=== PATIENT | male | born 1955 | race Caucasian/White ===

== ENCOUNTER 2016-08-08 15:39 | Emergency (ER) | payer MEDICARE, MEDICAID ==
[2016-08-08] MEDS ORDERED: Ketorolac INJ* 30 MG/ML 1 ML VIAL IV ONE (17:26)
[2016-08-08 17:31] LABS: Urine Bacteria Absent (Absent); Urine Bilirubin Negative (Negative); Urine Glucose Negative (Negative); Urine Nitrite Negative (Negative); Urine Sperm Present (Absent)
--- NOTE | 2016-08-08 17:48 | RAD ---
CLINICAL HISTORY: Left flank pain, hematuria COMPARISON: September 30, 2012 TECHNIQUE: Multiple contiguous axial CT scans were obtained of the abdomen and pelvis, without intravenous contrast enhancement. Coronal and sagittal multiplanar reformations are submitted for review. Oral contrast was not administered. FINDINGS: The study is limited by the lack of intravenous contrast. This limits evaluation of the solid organs and vasculature. LUNG BASES: The lung bases are clear. LIVER: The liver is normal in shape, size, contour, and attenuation. BILE DUCTS: There is no intrahepatic or extrahepatic biliary dilatation. GALLBLADDER: The gallbladder is not visualized. Surgical clips are noted in the gallbladder fossa. PANCREAS: The pancreas is normal, without mass or ductal dilatation. SPLEEN: Normal in size and appearance. UPPER GI TRACT: Evaluation of the gastrointestinal tract is limited by incomplete gastric distention. The upper GI tract is unremarkable. SMALL BOWEL AND MESENTERY: The small bowel is normal in contour, course, and caliber. There is no obstruction or dilatation. COLON: There are occasional diverticula of the sigmoid colon. There is no pericolonic inflammatory change. ADRENALS: Normal bilaterally. KIDNEYS: There is a 0.9 x 0.7 x 0.4 cm calculus of the left UPJ. There is mild to moderate pelvocaliectasis. There is mild stranding along the proximal left ureter. BLADDER: The bladder is smooth in contour. PELVIC ORGANS: The prostate gland is normal. The seminal vesicles are symmetric. AORTA: There is calcific atherosclerotic disease of the abdominal aorta and its branches, without aneurysmal dilatation IVC: Unremarkable LYMPH NODES: There is no lymphadenopathy by size criteria. ABDOMINAL WALL: There is no evidence for abdominal wall hernia. BONES AND SOFT TISSUES: Degenerative changes are noted along the spine OTHER: None IMPRESSION: 0.9 CM CALCULUS OF THE LEFT UPJ WITH MILD TO MODERATE HYDRONEPHROSIS
[2016-08-08 18:09] LABS: Hematocrit 38 % (42-52); Hemoglobin 12.8 g/dl (14.0-18.0); Mean Corpuscular HGB Conc 34 g/dl (31-36); Mean Corpuscular Hemoglobin 30 pg (27-31); Mean Corpuscular Volume 90 fL (80-94); Mean Platelet Volume 9 um3 (7.4-10.4); Red Blood Count 4.24 10^6/ul (4.0-5.4); Red Cell Distribution Width 14 % (10.5-15); White Blood Count 7.2 10^3/ul (3.5-10.8)
[2016-08-08 18:27] LABS: Albumin 4.1 g/dL (3.2-5.2); BUN/Creatinine Ratio 21.1 (8-20); Calcium 9.6 mg/dL (8.6-10.3); EGFR African American 109.6 (>60); EGFR Non-African American 85.2 (>60); Globulin 2.9 g/dL (2-4); Potassium 4.3 mmol/L (3.5-5.0); Total Bilirubin 0.7 mg/dL (0.2-1.0)
[2016-08-08 20:01] VITALS: BP 163/91
--- NOTE | 2016-08-08 22:41 | ED ---
Servando Phillips Rebecca, scribed for Riki Lang MD on 08/08/16 at 1727 . Abdominal Pain/Male - HPI Summary HPI Summary: Pt is a 61 y/o M who presents to ED c/o abd pain. Pain began suddenly 1 week ago and has been constant and worsening since onset. Pain is discrete to the LLQ without radiation. Characterized as sharp and moderate, ranked 5/10. Sx alleviated by nothing, aggravated by sitting down and laying on his side. Additionally c/o hematuria for 1 week which has been improving since onset. Denies V/D, fever, back pain, blood in stool and dysuria. PSHx hernia removal ( 5 years ago, in the LLQ). No PMHx of FHx kidney stones. PSHx cholecystectomy and appy. - History of Current Complaint Chief Complaint: EDAbdPain Stated Complaint: LT SIDE ABD PAIN Time Seen by Provider: 08/08/16 17:16 Hx Obtained From: Patient Onset/Duration: Sudden Onset, Lasting Weeks - 1 week, Still Present Timing: Constant Severity Initially: Moderate Severity Currently: Moderate Pain Intensity: 5 Pain Scale Used: 0-10 Numeric Location: Discrete At: LLQ Radiates: No Character: Sharp Aggravating Factor(s): Other: - Sitting or laying on his side Alleviating Factor(s): Nothing Associated Signs And Symptoms: Positive: Urinary Symptoms - Hematuria; denies dysuria. Negative: Fever, Back Pain, Blood in Stool, Vomiting, Diarrhea - Allergies/Home Medications Allergies/Adverse Reactions: Allergies Allergy/AdvReac Type Severity Reaction Status Date / Time No Known Allergies Allergy Verified 08/08/16 15:42 PMH/Surg Hx/FS Hx/Imm Hx Endocrine/Hematology History: Denies: Hx Diabetes Cardiovascular History: Reports: Hx Hypercholesterolemia - No meds, Hx Hypertension Denies: Hx Pacemaker/ICD, Other Cardiovascular Problems/Disorders GI History: Reports: Other GI Disorders - Hx umbilical hernia repair, cholecystitis History: Denies: Hx Kidney Stones Musculoskeletal History: Reports: Other Musculoskeletal History - 2 surgeries right knee, probable arthritis knees, occ back spasms Sensory History: Reports: Hx Contacts or Glasses Denies: Hx Hearing Aid Opthamlomology History: Reports: Hx Contacts or Glasses Psychiatric History: Denies: Hx Panic Disorder - Surgical History Surgery Procedure, Year, and Place: Hernia repair 04/2012,LT ear drum ruptured surgery 1982, bone infection R kneecap surgical treatment, appendectomy 1992, 2006 additional R knee surgery,gallbladder Hx Anesthesia Reactions: No Infectious Disease History: No Infectious Disease History: Denies: History Other Infectious Disease, Traveled Outside the [place] in Last 30 Days - Family History Known Family History: Positive: Cardiac Disease - mother with pacemaker, Other - lung cancer - Social History Alcohol Use: None Substance Use Type: Reports: None Smoking Status (MU): Former Smoker - Quit 21 years ago Review of Systems Negative: Fever Positive: Abdominal Pain - LLQ. Negative: Vomiting, Diarrhea Positive: hematuria, other - Denies blood in stool. Negative: dysuria Positive: Arthralgia - Denies back pain All Other Systems Reviewed And Are Negative: Yes Physical Exam - Summary Physical Exam Summary: General: Pleasant, alert, nontoxic, appears mildly uncomfortable. Holding LLQ but still jovial. HEENT: Moist mucosa Neck: soft, supple, no adenopathy, no edema Heart: S1, S2, RRR, no murmurs, rubs, or gallops Lungs: Clear to auscultation, breathing comfortable, no wheezes or rales Abdominal: Soft, flat,bowel sounds throughout. Tenderness in the LLQ. Fmeoral pulse intact. No rebound, no inguinal gulfe with Valsalva. Extremities: No edema, no calf tenderness, no CVA tenderness, no pitting edema. Neuro: Alert and oriented x 3 Psych: Logical, coherent Triage Information Reviewed: Yes Vital Signs On Initial Exam: Initial Vitals Temp Pulse Resp BP Pulse Ox 97.3 F 63 19 172/87 100 08/08/16 15:40 08/08/16 15:40 08/08/16 15:40 08/08/16 15:40 08/08/16 15:40 Vital Signs Reviewed: Yes Diagnostics - Vital Signs Vital Signs Temp Pulse Resp BP Pulse Ox 08/08/16 16:39 98.3 F 80 17 142/81 96 08/08/16 15:40 97.3 F 63 19 172/87 100 - Laboratory Lab Results: Lab Results 08/08/16 08/08/16 08/08/16 Range/Units 17:17 18:00 18:00 WBC 7.2 (3.5-10.8) 10^3/ul RBC 4.24 (4.0-5.4) 10^6/ul Hgb 12.8 L (14.0-18.0) g/dl Hct 38 L (42-52) % MCV 90 (80-94) fL MCH 30 (27-31) pg MCHC 34 (31-36) g/dl RDW 14 (10.5-15) % Plt Count 170 (150-450) 10^3/ul MPV 9 (7.4-10.4) um3 Neut % (Auto) 60.8 (38-83) % Lymph % (Auto) 28.7 (25-47) % [place] % (Auto) 7.3 (1-9) % Eos % (Auto) 2.2 (0-6) % Baso % (Auto) 1.0 (0-2) % Absolute Neuts (auto) 4.4 (1.5-7.7) 10^3/ul Absolute Lymphs (auto) 2.1 (1.0-4.8) 10^3/ul Absolute Monos (auto) 0.5 (0-0.8) 10^3/ul Absolute Eos (auto) 0.2 (0-0.6) 10^3/ul Absolute Basos (auto) 0.1 (0-0.2) 10^3/ul Absolute Nucleated RBC 0 10^3/ul Nucleated RBC % 0 Sodium 136 (133-145) mmol/L Potassium 4.3 (3.5-5.0) mmol/L Chloride 104 (101-111) mmol/L Carbon Dioxide 28 (22-32) mmol/L Anion Gap 4 (2-11) mmol/L BUN 19 (6-24) mg/dL Creatinine 0.90 (0.67-1.17) mg/dL Est GFR ( Amer) 109.6 (>60) Est GFR (Non-Af Amer) 85.2 (>60) BUN/Creatinine Ratio 21.1 H (8-20) Glucose 95 (70-100) mg/dL Calcium 9.6 (8.6-10.3) mg/dL Total Bilirubin 0.70 (0.2-1.0) mg/dL AST 20 (13-39) U/L ALT 22 (7-52) U/L Alkaline Phosphatase 65 (34-104) U/L Total Protein 7.0 (6.4-8.9) g/dL Albumin 4.1 (3.2-5.2) g/dL Globulin 2.9 (2-4) g/dL Albumin/Globulin Ratio 1.4 (1-3) Urine Color Yellow Urine Appearance Cloudy Urine pH 5.0 (5-9) Ur Specific [place] 1.020 (1.010-1.030) Urine Protein 1+(30 mg/dl) H (Negative) Urine Ketones Negative (Negative) Urine Blood 3+ H (Negative) Urine Nitrate Negative (Negative) Urine Bilirubin Negative (Negative) Urine Urobilinogen Negative (Negative) Ur Leukocyte Esterase Trace H (Negative) Urine WBC (Auto) 2+(11-20/hpf) H (Absent) Urine RBC (Auto) 3+(>10/hpf) H (Absent) Urine Bacteria Absent (Absent) Urine Sperm Present H (Absent) Urine Glucose Negative (Negative) Result Diagrams: 08/08/16 18:00 08/08/16 18:00 Lab Statement: Any lab studies that have been ordered have been reviewed, and results considered in the medical decision making process. - CT Abd/Pel CT CT Interpretation: Positive (See Comments) - 0.9 CM CALCULUS OF THE LEFT UPJ WITH MILD TO MODERATE HYDRONEPHROSIS CT Interpretation Completed By: Radiologist Re-Evaluation - Re-Evaluation First Eval Re-Evaluation Time: 18:30 Change: Improved Comment: Feeling better, appears comfortable. Abdominal Pain Fem Course/Dx - Course Assessment/Plan: Has sx of hematuria and some pain on the L side since the 1st. He has a 0.9 cm stone on the left. Its been 6 days and he has handled it, in fact, quite well except for pain. At the moment there are no signs of sepsis, severe dehydration or infection. Agrees to return for fever, signs of dehydration, intractable vomiting or intractable pain. Otherwise he will follow up with urologist in the next couple of days. - Diagnoses Differential Diagnosis/HQI/PQRI: Benign Prostatic Hyperplasia, Gall Bladder Disease, Prostatitis, Renal Colic, Ureteral Stone, Urinary Tract Infection Provider Diagnoses: Calculus of left kidney Discharge - Discharge Plan Condition: Fair Disposition: HOME Prescriptions: HYDROcodone/ACETAMIN 5-325 MG* [[place] 5-325 TAB*] 1 tab PO Q6H PRN #20 tab MDD 6 PRN Reason: Pain Ondansetron ODT TAB* [Zofran Odt TAB*] 4 mg PO Q8H PRN #20 tab.odt PRN Reason: Nausea Patient Education Materials: Kidney Stones (ED) Referrals: Arian Del Valle MD [Primary Care Provider] - Singh Azul MD [Medical Doctor] - 1 Day The documentation as recorded by the Servando conley Rebecca accurately reflects the service I personally performed and the decisions made by Precious bell Farzad, MD.
== END 2016-08-08 20:02 | disposition home or self-care (01) ==
LOC: ED 15:39
DX: N20.0 Calculus of kidney (principal); R10.32 Left lower quadrant pain
CPT/HCPCS: 36415; 74176; 80053; 81003; 81015; 85025; 87086; 96374; 99283; J1885

== ENCOUNTER → 2016-08-11 09:43 | Day surgery (SDC) | payer MEDICARE, MEDICAID ==
--- NOTE | 2016-08-10 19:54 | HP ---
HISTORY AND PHYSICAL: DATE OF PLANNED ADMISSION AND SURGERY: 08/11/16 HISTORY OF PRESENT ILLNESS: Mr. Patel is a 61-year-old white male who is admitted with a 1 cm proximal left ureteral calculus for cystoscopy and placement of left ureteral stent. Mr. Patel's history goes back to about 10 days ago when he started having recurrent episodes of left flank pain. Some of the episodes were associated with hematuria. He had nausea, but he did not have any fever or chills. Because of increasing severity of the pain, he presented to the emergency room on 08/08/16. He had a noncontrast CT of the abdomen and pelvis, which showed a 1 cm calculus in the proximal Left ureter associated with moderate left hydronephrosis. His lab work was normal. He was placed on pain medication and referred to our office for further evaluation and treatment. His past history is otherwise negative. No past history of any renal diseases or calculi and no history of any urological surgeries, no previous history of gross hematuria. He has a long history of nocturia about every 2 hours and day frequency every 2 hours. He, however, reports having adequate urinary stream and no feeling of incomplete bladder emptying. He denies any other episodes of gross hematuria or urinary tract infections. PAST MEDICAL HISTORY: Relevant for cholecystectomy, appendectomy, and hernia repair in the past. He denies any cardiac or pulmonary diseases or symptoms. MEDICATIONS: He is on no chronic medications. ALLERGIES: He denies any allergies to medications. FAMILY HISTORY: Negative for prostate carcinoma. SOCIAL HISTORY: He is a nonsmoker. He works at [employer] thru the [employer] program. He is not . He lived alone. He does not drive and takes the bus to work and for his appointments. PHYSICAL EXAMINATION GENERAL: Moderately overweight white male who looks older than his age. VITAL SIGNS: Blood pressure 140/80, pulse of 60. LUNGS: Clear. HEART: Regular and rhythmic. No murmurs. ABDOMEN: Soft. No masses, no tenderness. There is mild left CVA tenderness. EXTERNAL GENITALIA: Normal. RECTAL EXAM: Shows a slightly enlarged but non-suspicious prostate. LABORATORY DATA: Urinalysis showed +3 blood and negative otherwise. The patient has a KUB, which confirmed the presence of a 1 cm calculus radio- opaque in the proximal left ureter. IMPRESSION: A 1 cm radiopaque calculus in the proximal left ureter causing recurrent episodes of left renal colic and gross hematuria. PLAN: Cystoscopy and placement of left ureteral stent. The patient will be brought back afterwards for shockwave lithotripsy of the left renal calculus. Will decide regarding timing of stent removal. I discussed the above plans with the patient. All his questions were answered. [id number]/CPS #: [id number] RADHA
[~2016-08-11 09:43] MED LIST: Buffered Lidocaine 1% SYR 3ML* 3 ML/SYR SYRINGE INTRADERM ONE; Dexamethasone IV* 4 MG/ML 1 ML (4 MG) ONE; Famotidine IV* 10 MG/ML 2 ML (20 mg) IV ONE; Famotidine IV* 10 MG/ML 2 ML (20 mg) ONE; Furosemide IV* 10 MG/ML 2 ML VIAL (20 MG) ONE; HYDROmorphone INJ* 1 MG/ML CARPUJECT SYRINGE IV PRN; Iohexol 180 (CONTRAST) 10 ML SDV IV ONE; KETAMINE HCL* 50 MG/ML 10 ML VIAL ONE; Ketorolac INJ* 30 MG/ML 1 ML VIAL ONE; Lidocaine 2% PF * 5 ML VIAL ONE; Metoclopramide TAB* 10 MG ONE; Metoclopramide TAB* 10 MG PO ONE; Midazolam* 1 MG/ML 2 ML VIAL (2 MG) ONE; Midazolam* 1 MG/ML 5 ML VIAL (5 MG) ONE; Ondansetron INJ* 2 MG/ML VIAL IV PRN; Ondansetron INJ* 2 MG/ML VIAL ONE; Propofol* 10 MG/ML 20 ML BTL IV PUSH ONE; cefTRIAXone(*) 2 GM ADDV.VIAL IVPB ONE; fentaNYL* 50 MCG/ML 2 ML VIAL (100 MCG VIAL) IV PRN; fentaNYL* 50 MCG/ML 2 ML VIAL (100 MCG VIAL) ONE; oxyCODONE/Acetamin 5/325 MG* TAB PO PRN
--- NOTE | 2016-08-11 13:59 | RAD ---
INDICATION: Left ureteral stent placement COMPARISONS: August 08, 2016 TECHNIQUE: Fluoroscopy was provided for a retrograde pyelogram and stent placement. Total fluoroscopy time is: 7 seconds FINDINGS: Spot images demonstrate contrast within the renal collecting system. A ureteral stent is noted. IMPRESSION: FLUOROSCOPY WAS PROVIDED FOR A RETROGRADE PYELOGRAM AND STENT PLACEMENT CPT II Codes: 6045F
[2016-08-11 15:48] VITALS: BP 149/84
--- NOTE | 2016-08-12 00:41 | OP ---
DATE OF OPERATION: 08/11/16 [facility] DATE OF : 51 SURGEON: Balwinder Miller MD ANESTHESIOLOGIST: Dr. Rogelio Suárez. ANESTHESIA: General. PRE-OP DIAGNOSIS: Proximal left ureteral calculus (1cm). POST-OP DIAGNOSIS: Proximal left ureteral calculus (1cm). OPERATIVE PROCEDURE: 1. Cystoscopy. 2. Left retrograde pyelography and placement of left ureteral stent (6-[place]). INDICATION FOR PROCEDURE: Mr. Patel is a 61-year-old white male who presented to the emergency room two days ago with symptoms of left renal colic associated with on and off gross hematuria. Non-contrast CT of the abdomen and pelvis showed 1 cm calculus in the proximal left ureter associated with moderate hydronephrosis. KUB showed the stone to be a radiopaque. The patient is admitted for stent placement in preparation for definitive treatment of the stone. PATHOLOGY AT CYSTOSCOPY: The penile and bulbar urethra looked normal. The prostatic urethra measured 2.5 cm in length and there was moderate degree of obstruction by prostate enlargement. Examination of the bladder showed healthy bladder mucosa. There were no suspicious bladder lesions seen. No calculi or diverticulae were noted. The ureteral orifices looked normal. At fluoroscopy a 10 x 5 mm calculus was noted in the proximal left ureter about 2 cm distal to the ureteropelvic junction. There was minimal degree of left hydronephrosis. DESCRIPTION OF PROCEDURE: After successful general anesthesia, the patient was placed in the dorsal lithotomy position and was prepped and draped in the usual manner. Cystoscopy was performed. The bladder was carefully inspected and the above findings were noted. A flexible tip guidewire was then introduced into the left orifice and positioned in the area of the renal pelvis. A size 5-[place] open ended catheter was fed on top of the guidewire and positioned inside the renal pelvis. Retrograde pyelography was performed. A size 6-[place] stent was then placed with the proximal end coiling in the renal pelvis and the distal end coiling inside the bladder. There was good drainage of contrast from the kidney. The patient tolerated the procedure well and left the operating room in good condition. The plan is to bring the patient back next week for planned shockwave lithotripsy. If the stone is well fragmented then the stent will be removed. [id number]/CPS #: [id number] [facility]
== END | disposition home or self-care (01) ==
LOC: OR 09:43
PROVIDERS: ATTEND Urology
DX: N13.2 Hydronephrosis with renal and ureteral calculous obstruction (principal); R31.0 Gross hematuria
CPT/HCPCS: 74420; A9270-GY; C1876; J0696; J1100; J1885; J1940; J2250; J2405; J2704; J3010

== ENCOUNTER → 2016-08-14 08:30 | Day surgery (SDC) | payer MEDICARE, MEDICAID ==
[~2016-08-14 08:30] MED LIST changes: +Atropine 1MG/ML INJ* 1 ML VIAL ONE; -Dexamethasone IV* 4 MG/ML 1 ML (4 MG) ONE; +DiMENhydriNATE IV* 50 MG/ML VIAL IV PUSH PRN; +EPHEDrine (Pressors)* 50 MG/ML VIAL ONE; -Famotidine IV* 10 MG/ML 2 ML (20 mg) IV ONE; -Famotidine IV* 10 MG/ML 2 ML (20 mg) ONE; -Furosemide IV* 10 MG/ML 2 ML VIAL (20 MG) ONE; -HYDROmorphone INJ* 1 MG/ML CARPUJECT SYRINGE IV PRN; -Iohexol 180 (CONTRAST) 10 ML SDV IV ONE; -KETAMINE HCL* 50 MG/ML 10 ML VIAL ONE; -Ketorolac INJ* 30 MG/ML 1 ML VIAL ONE; -Metoclopramide TAB* 10 MG ONE; -Metoclopramide TAB* 10 MG PO ONE; -Midazolam* 1 MG/ML 2 ML VIAL (2 MG) ONE; -Midazolam* 1 MG/ML 5 ML VIAL (5 MG) ONE; -Ondansetron INJ* 2 MG/ML VIAL IV PRN; -Ondansetron INJ* 2 MG/ML VIAL ONE
--- NOTE | 2016-08-14 09:18 | RAD ---
HISTORY: Left flank pain COMPARISONS: August 10, 2016 VIEWS: Frontal views of the abdomen. FINDINGS: BOWEL: There is a nonspecific bowel gas pattern, with nondilated small bowel gas noted. CALCULI: Again noted is a calculus overlying the expected location of the left proximal ureter measuring approximately 0.7 cm in size. There has been interval placement of a left ureteral stent. BONES AND SOFT TISSUES: Degenerative changes are noted of the spine and hips. OTHER FINDINGS: The lung bases are clear. There is no subphrenic gas. IMPRESSION: LEFT-SIDED NEPHROLITHIASIS WITH INTERVAL PLACEMENT OF A LEFT URETERAL STENT
[2016-08-14 13:53] VITALS: BP 133/88
--- NOTE | 2016-08-15 02:30 | OP ---
DATE OF OPERATION: 08/14/16 [facility] DATE OF : 51 SURGEON: Balwinder Miller MD ANESTHESIOLOGIST: Orlando Dorsey MD ANESTHESIA: General. PRE-OP DIAGNOSES: 1. Proximal left ureteral calculus (1 cm). 2. Status post placement of left ureteral stent. POST-OP DIAGNOSES: 1. Proximal left ureteral calculus (1 cm). 2. Status post placement of left ureteral stent. OPERATIVE PROCEDURE: Shock wave lithotripsy of proximal left ureteral calculus (1 cm). INDICATIONS: Mr. Patel is a 61-year-old white male who presented last week with symptoms of left renal colic and was noted to have a 1-cm calculus in the proximal left ureter. Three days ago, he had urgent placement of left ureteral stent. He is now admitted for definitive treatment of the stone. PATHOLOGY: Preoperative KUB showed the left ureteral stent in good position. A 10 x 5 mm radiopaque calculus was noted in the proximal left ureter about 2 cm distal to the ureteropelvic junction. DESCRIPTION OF PROCEDURE: After successful general anesthesia, the patient was placed in the supine position on the shock wave lithotripsy table. The left ureteral calculus was visualized in both the PA and the oblique x-ray views and the position of the generator was adjusted to have the stone in the focus of the shock waves. A total of 2400 shocks were then delivered at a rate of 90 shocks per minute. The proper positioning of the generator and the fragmentation of the stone were monitored periodically. At the completion of the treatment, there seemed to be adequate fragmentation of the stone, but there was still a bit of a concern that the stone fragments might be too large for spontaneous passage and decision was made not to remove the stent at this setting. The plan is to see the patient in the office next week with a follow-up KUB and decision will be made regarding the stent removal or or the need for an endoscopic procedure. CC: Dr. Arian Del Valle* [id number]/[facility] #: [id number] MTDDaja
== END | disposition home or self-care (01) ==
LOC: OR 08:30
PROVIDERS: ATTEND Urology
DX: N20.1 Calculus of ureter (principal); Z87.891 Personal history of nicotine dependence
CPT/HCPCS: 74000; J0461; J0696; J2704; J3010

== ENCOUNTER 2016-09-22 13:35 | Emergency (ER) | payer MEDICARE, MEDICAID ==
[2016-09-22 13:48] VITALS: BP 146/87
[2016-09-22] MEDS ORDERED: Ibuprofen TAB* 600 MG PO ONE (14:20)
--- NOTE | 2016-09-22 14:33 | ED ---
Complex/Multi-Sys Presentation - HPI Summary HPI Summary: Pt here w/ accidental fall last night and is sore today. Was walking on side walk when he tripped over an uneven part and fell forward, catching himself w/ his hands, forearms, chest and knees. Reports he hit his chin as well. No LOC and denies [place], visual change, N/V, photophobia, neck pain. No break(s) in skin. Anterior chest muscles are sore but no significant pain nor is pain worse w/ deep breath - moving shoulders well w/o pain. No new back pain (has chronic LBP) . Has some hip soreness but has B/L hip arthritis (baseline). No SOB, numbness, tingling, weakness. His forearms and pinkies are sore to touch and with bending at the elbow and finger joints here - no swelling, bruising or deformities. His anterior knees are sore as well where they hit the sidewalk however he has no swelling and is able to walk and move LE's w/o pain or weakness. Has not tried anything to alleviate his pain. - History Of Current Complaint Chief Complaint: EDExtremityLower Time Seen by Provider: 09/22/16 14:10 Hx Obtained From: Patient - Allergies/Home Medications Allergies/Adverse Reactions: Allergies Allergy/AdvReac Type Severity Reaction Status Date / Time No Known Allergies Allergy Verified 09/22/16 13:45 PMH/Surg Hx/FS Hx/Imm Hx Previously Healthy: Yes Endocrine/Hematology History: Denies: Hx Anticoagulant Therapy, Hx Blood Disorders, Hx Diabetes, Hx Unexplained Bleeding Cardiovascular History: Reports: Hx Hypercholesterolemia - No meds, Hx Hypertension Denies: Hx Pacemaker/ICD, Other Cardiovascular Problems/Disorders Respiratory History: Denies: Other Respiratory Problems/Disorders GI History: Reports: Other GI Disorders - Hx umbilical hernia repair, cholecystitis History: Reports: Hx Kidney Stones - KIDNEY STONES 08/2016 Musculoskeletal History: Reports: Hx Arthritis - HIPS ULYSSES, Other Musculoskeletal History - 2 surgeries right knee, probable arthritis knees, occ back spasms Sensory History: Reports: Hx Contacts or Glasses Denies: Hx Hearing Aid Opthamlomology History: Reports: Hx Contacts or Glasses Psychiatric History: Denies: Hx Panic Disorder - Surgical History Surgery Procedure, Year, and Place: Hernia repair 04/2012,LT ear drum ruptured surgery 1982, bone infection R kneecap surgical treatment, appendectomy 1992, 2006 additional R knee surgery,gallbladder Hx Anesthesia Reactions: No Infectious Disease History: No Infectious Disease History: Denies: History Other Infectious Disease, Traveled Outside the [place] in Last 30 Days - Family History Known Family History: Positive: Cardiac Disease - mother with pacemaker, Other - lung cancer - Social History 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 Lives: With Family - Alcohol Use: None Hx Substance Use: No Substance Use Type: Reports: None Hx Tobacco Use: Yes - not currently Smoking Status (MU): Former Smoker Amount Used/How Often: PACK Q 2-3 DAYS Length of Time of Smoking/Using Tobacco: 1995 Have You Smoked in the Last Year: No Review of Systems Constitutional: Negative Eyes: Negative ENT: Negative Cardiovascular: Negative Respiratory: Negative Gastrointestinal: Negative Positive: no symptoms reported Musculoskeletal: Other - see HPI Skin: Other - see HPI Neurological: Negative Psychological: Normal - concerned All Other Systems Reviewed And Are Negative: Yes Physical Exam Triage Information Reviewed: Yes Vital Signs On Initial Exam: Initial Vitals Temp Pulse Resp BP Pulse Ox 98.0 F 70 18 146/87 97 09/22/16 13:45 09/22/16 13:45 09/22/16 13:45 09/22/16 13:45 09/22/16 13:45 Vital Signs Reviewed: Yes Appearance: Positive: Well-Appearing, No Pain Distress, Well-Nourished Skin: Positive: Warm, Dry - nickel sized superficial abrasion over Rt anterior knee; nickel sized ecchymosis over Lt knee; no other abnormal skin areas observed in fall areas Head/Face: Positive: Normal Head/Face Inspection Eyes: Positive: Normal, EOMI, MARIA LUZ - no photophobia, Conjunctiva Clear ENT: Positive: Normal ENT inspection, Hearing grossly normal, Pharynx normal. Negative: Nasal congestion, Nasal drainage Dental: Positive: Other - mostly edentulous - no signs of trauma Neck: Positive: Supple, Nontender Respiratory/Lung Sounds: Positive: Clear to Auscultation, Breath Sounds Present , Other - NTTP; equal chest rise - no flail chest, no ecchymosis, no abrasions observed. Negative: Rales, Rhonchi, Wheezes Cardiovascular: Positive: Normal, RRR, Pulses are Symmetrical in both Upper and Lower Extremities, S1, S2. Negative: Leg Edema Left, Leg Edema Right Abdomen Description: Positive: Nontender, No Organomegaly, Soft Bowel Sounds: Positive: Present Musculoskeletal: Positive: Normal, Strength/ROM Intact, Pain @ - mild TTP over volar surface of B/L forearms - pt reports pain in B/L forearms w/ elbow flexion and B/L pinky fingers w/ flexion/gripping - no ecchymosis, no erythema, no edema, no deformity -FROM UE joints Neurological: Positive: Normal, Sensory/Motor Intact, Alert, Oriented to Person Place, Time, CN Intact II-III Psychiatric: Positive: Anxious Diagnostics - Vital Signs Vital Signs Temp Pulse Resp BP Pulse Ox 09/22/16 13:45 98.0 F 70 18 146/87 97 - Laboratory Lab Statement: Any lab studies that have been ordered have been reviewed, and results considered in the medical decision making process. Complex Multi-Symp Course/Dx - Diagnoses Provider Diagnoses: Fall on moving sidewalk Discharge - Discharge Plan Condition: Stable Disposition: HOME Patient Education Materials: Fall Prevention (ED), Contusion in Adults (ED) Referrals: Arian Del Valle MD [Primary Care Provider] - Additional Instructions: You may ice and take ibuprofen with food for pain. Gentle stretches of affected areas to prevent stiffness. Follow-up with PCP if symptoms persist or worsen. *If you develop chest pain, shortness of breath, headache, change in vision, weakness or numbness, return to ED
--- NOTE | 2016-09-22 15:11 | RAD ---
INDICATION: Left forearm injury. TECHNIQUE: 2 views of the left forearm were obtained. FINDINGS: The bones are in normal alignment. No fracture is seen. IMPRESSION: NO EVIDENCE FOR FRACTURE.
--- NOTE | 2016-09-22 15:12 | RAD ---
INDICATION: Trauma left fifth finger. TECHNIQUE: 3 views of the left fifth finger were obtained. FINDINGS: The bones are normal alignment. No fracture is seen. Joint spaces appear maintained. IMPRESSION: NO EVIDENCE FOR FRACTURE.
--- NOTE | 2016-09-22 15:13 | RAD ---
HISTORY: Right small finger pain COMPARISONS: None VIEWS: 3, Frontal, lateral, and oblique views of the fifth digit of the right hand FINDINGS: BONE DENSITY: Normal. BONES: There is no displaced fracture. JOINTS: There is no arthropathy. ALIGNMENT: There is no dislocation. SOFT TISSUES: Unremarkable. OTHER FINDINGS: None. IMPRESSION: NO ACUTE OSSEOUS INJURY. IF SYMPTOMS PERSIST, RECOMMEND REPEAT IMAGING.
--- NOTE | 2016-09-22 15:13 | RAD ---
HISTORY: Fall with pain, forearm pain COMPARISONS: None VIEWS: 2, Frontal and lateral views of the right forearm FINDINGS: BONE DENSITY: Normal. BONES: There is no displaced fracture. 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 SOFT TISSUES: Unremarkable. OTHER FINDINGS: None. IMPRESSION: NO ACUTE OSSEOUS INJURY. IF SYMPTOMS PERSIST, RECOMMEND REPEAT IMAGING.
== END 2016-09-22 15:38 | disposition home or self-care (01) ==
LOC: ED 13:35
DX: S80.00XA Contusion of unspecified knee, initial encounter (principal); M79.643 Pain in unspecified hand; Z87.891 Personal history of nicotine dependence; W19.XXXA Unspecified fall, initial encounter; Y93.9 Activity, unspecified; Y92.9 Unspecified place or not applicable; Y99.9 Unspecified external cause status
CPT/HCPCS: 73140; 99281; A9270-GY

== ENCOUNTER 2016-12-19 09:21 | Day surgery (SDC) | payer MEDICARE, MEDICAID ==
[~2016-12-19 09:21] MED LIST changes: +Acetaminophen TAB* 325 MG PO PRN; -Atropine 1MG/ML INJ* 1 ML VIAL ONE; +Buffered Lidocaine 0.9% SYRIN* 5 ML/SYR SYRINGE INTRADERM ONE; -Buffered Lidocaine 1% SYR 3ML* 3 ML/SYR SYRINGE INTRADERM ONE; -DiMENhydriNATE IV* 50 MG/ML VIAL IV PUSH PRN; -EPHEDrine (Pressors)* 50 MG/ML VIAL ONE; -Lidocaine 2% PF * 5 ML VIAL ONE; -Propofol* 10 MG/ML 20 ML BTL IV PUSH ONE; -cefTRIAXone(*) 2 GM ADDV.VIAL IVPB ONE; -fentaNYL* 50 MCG/ML 2 ML VIAL (100 MCG VIAL) IV PRN; -fentaNYL* 50 MCG/ML 2 ML VIAL (100 MCG VIAL) ONE; -oxyCODONE/Acetamin 5/325 MG* TAB PO PRN
[2016-12-19] MEDS ORDERED: Midazolam* 1 MG/ML 2 ML VIAL (2 MG) ONE (10:41)
[2016-12-19] MEDS ORDERED: fentaNYL* 50 MCG/ML 2 ML VIAL (100 MCG VIAL) ONE (10:41)
[2016-12-19 11:39] VITALS: BP 154/76
[2016-12-19] MEDS ORDERED: Lidocaine 1% MPF* 2 ML VIAL ONE (14:01)
[2016-12-19] MEDS ORDERED: Cyclopentolate 1% OPTH.SOL* 2 ML BTL ONE (14:01)
[2016-12-19] MEDS ORDERED: Buffered Lidocaine 0.9% SYRIN* 5 ML/SYR SYRINGE ONE (14:01)
[2016-12-19] MEDS ORDERED: Neomycin/Polymy/Dex OPHTH.OIN* 3.5 GM ONE (14:01)
[2016-12-19] MEDS ORDERED: Phenylephrine 2.5% OPTH.SOL* 2 ML BTL ONE (14:01)
[2016-12-19] MEDS ORDERED: Tetracaine 0.5% OPTH.SOL 4 ML* 1 DROP BTL ONE (14:01)
[2016-12-19] MEDS ORDERED: Tropicamide 1% OPTH.SOL* BTL ONE (14:01)
[2016-12-19] MEDS ORDERED: Flurbiprofen 0.03% OPTH.SOL* 2.5 ML BTL ONE (14:01)
--- NOTE | 2016-12-19 15:12 | OP ---
DATE OF OPERATION/DATE OF DICTATION: 12/19/2016 - [facility] DATE OF : 1955. SURGEON: Dr. Johnathan Bermudez. BEEF KILLER: None. ANESTHESIOLOGIST: Rene Ramos MD ANESTHESIA: Topical with intravenous sedation. PRE-OP DIAGNOSIS: Cataract, right eye. POST-OP DIAGNOSIS: Cataract, right eye. OPERATIVE PROCEDURE: Phacoemulsification and cataract extraction with posterior chamber intraocular lens implant, right eye. COMPLICATIONS: None. BLOOD LOSS: None. DESCRIPTION OF PROCEDURE: The patient was brought to the operating room and received a small amount of intra- venous sedation. A drop of Tetracaine was placed in his right eye. He was prepped and draped in the usual sterile fashion for ophthalmic surgery and attention was directed to the right eye where a speculum was placed. A paracentesis was created at the 11 o'clock position and 0.1 cc of 1 percent preservative-free Lidocaine was injected into the anterior chamber followed by DisCoVisc. The eye was digitally stabilized while a 2.75 mm keratome was used to create a triplanar clear corneal incision at the 9 o'clock position. A continuous curvilinear capsulorrhexis was created with a cystotome and Utrata forceps. BSS on a cannula was used to hydrodissect the lens from the capsule. Phacoemulsification was performed in a divide-and- conquer technique to create four fragments which were removed. Residual cortical material was removed with irrigation and aspiration. DisCoVisc was used to inflate the capsular bag and an AUOOTO 18.0 diopter lens was folded and inserted into the capsular bag. DisCoVisc was removed using irrigation and aspiration. BSS on a cannula was used to hydrate the corneal stroma and seal the wound. At the end of the case the pupil was round and the lens was centered. The eye was of normal pressure and the wound was water tight. The speculum was removed and topical Maxitrol ointment was placed on the surface of the eye. The eye was closed, patched and shielded and the patient was sent to the recovery room in stable condition with post operative instructions and follow-up appointment given. [id number] #: [id number] [facility]
== END 2016-12-19 11:55 | disposition home or self-care (01) ==
LOC: OREAST 09:21
PROVIDERS: ATTEND Ophthalmology
DX: H26.9 Unspecified cataract (principal)
CPT/HCPCS: A9270-GY; J2250; J3010; V2632

== ENCOUNTER 2016-12-26 09:16 | Day surgery (SDC) | payer MEDICARE, MEDICAID ==
[2016-12-26] MEDS ORDERED: Midazolam* 1 MG/ML 2 ML VIAL (2 MG) ONE (10:44)
[2016-12-26] MEDS ORDERED: fentaNYL* 50 MCG/ML 2 ML VIAL (100 MCG VIAL) ONE (10:44)
[2016-12-26 11:57] VITALS: BP 144/97
[2016-12-26] MEDS ORDERED: Neomycin/Polymy/Dex OPHTH.OIN* 3.5 GM ONE (13:39)
[2016-12-26] MEDS ORDERED: Phenylephrine 2.5% OPTH.SOL* 2 ML BTL ONE (13:39)
[2016-12-26] MEDS ORDERED: Lidocaine 1% MPF* 2 ML VIAL ONE (13:39)
[2016-12-26] MEDS ORDERED: Cyclopentolate 1% OPTH.SOL* 2 ML BTL ONE (13:39)
[2016-12-26] MEDS ORDERED: Tetracaine 0.5% OPTH.SOL 4 ML* 1 DROP BTL ONE (13:39)
[2016-12-26] MEDS ORDERED: Flurbiprofen 0.03% OPTH.SOL* 2.5 ML BTL ONE (13:39)
[2016-12-26] MEDS ORDERED: Tropicamide 1% OPTH.SOL* BTL ONE (13:39)
--- NOTE | 2016-12-26 15:30 | OP ---
DATE OF OPERATION/DATE OF DICTATION: 12/26/2016 - [facility] DATE OF : 1955. SURGEON: Dr. Johnathan Bermudez. COMMERCIAL DRIVER: None. ANESTHESIOLOGIST: Rene Ramos MD ANESTHESIA: Topical with intravenous sedation. PRE-OP DIAGNOSIS: Cataract, left eye. POST-OP DIAGNOSIS: Cataract, left eye. OPERATIVE PROCEDURE: Phacoemulsification and cataract extraction with posterior chamber intraocular lens implant, left eye. COMPLICATIONS: None. BLOOD LOSS: None. DESCRIPTION OF PROCEDURE: The patient was brought to the operating room and received a small amount of intravenous sedation. A drop of Tetracaine was placed in his left eye. He was prepped and draped in the usual sterile fashion for ophthalmic surgery and attention was directed to the left eye where a speculum was placed. A paracentesis was created at the 5 o'clock position and 0.1 cc of 1 percent preservative-free Lidocaine was injected into the anterior chamber followed by DisCoVisc. The eye was digitally stabilized while a 2.75 mm keratome was used to create a triplanar clear corneal incision at the 3 o'clock position. A continuous curvilinear capsulorrhexis was created with a cystotome and Utrata forceps. BSS on a cannula was used to hydrodissect the lens from the capsule. Phacoemulsification was performed in a [id number] technique to create four fragments which were removed. Residual cortical material was removed with irrigation and aspiration. DisCoVisc was used to inflate the capsular bag and an AUOOTO 18.5 diopter lens was folded and inserted into the capsular bag. DisCoVisc was removed using irrigation and aspiration. BSS on a cannula was used to hydrate the corneal stroma and seal the wound. At the end of the case the pupil was round and the lens was centered. The eye was of normal pressure and the wound was water tight. The speculum was removed and topical Maxitrol ointment was placed on the surface of the eye. The eye was closed, patched and shielded and the patient was sent to the recovery room in stable condition with post operative instructions and follow-up appointment given. [id number]/CPS #: [id number] [facility]
== END 2016-12-26 11:58 | disposition home or self-care (01) ==
LOC: OREAST 09:16
PROVIDERS: ATTEND Ophthalmology
DX: H25.12 Age-related nuclear cataract, left eye (principal); Z87.891 Personal history of nicotine dependence
CPT/HCPCS: A9270-GY; J2250; J3010

== ENCOUNTER 2017-05-29 13:42 | Emergency (ER) | payer MEDICARE, MEDICAID ==
--- NOTE | 2017-05-29 15:08 | RAD ---
Indication: Pain and soft tissue swelling RIGHT wrist. Comparison: September 22, 2016 RIGHT forearm radiographs. Technique: AP and lateral views RIGHT wrist REPORT AND IMPRESSION: Normal articular alignment. Negative for fracture. Unremarkable soft tissue contours. Subtle peripheral vascular calcifications.
[2017-05-29] MEDS ORDERED: Ibuprofen TAB* 400 MG PO ONE (16:07)
[2017-05-29 16:23] VITALS: BP 136/72
--- NOTE | 2017-05-30 10:32 | ED ---
Upper Extremity Pain - HPI Summary HPI Summary: Patient presents to the ED with CC of right wrist pain after the hand was crushed in an elevator a few hours ago. He denies N/T. Denies color or temperature changes. Pulses +2 bilaterally and cap refill < 2 sec. Denies other injuries. Pain is 2/10 and constant. Able to move the extremity with 5/ 10 pain. Flexion and extension of wrist without limitation of ROM. Otherwise healthy. - History of Current Complaint Chief Complaint: EDExtremityUpper Stated Complaint: RIGHT WRISIT INJURY Time Seen by Provider: 05/29/17 14:03 Hx Obtained From: Patient Mechanism Of Injury: Blunt Trauma Onset/Duration: Started Hours Ago Timing: Constant Severity Initially: Moderate Severity Currently: Moderate Pain Location: Wrist Character: Aching Aggravating Factor(s): Movement Alleviating Factor(s): Rest Associated Signs & Symptoms: Positive: Negative. Negative: Bruising, Numbness/ Tingling, Neck Pain, Diaphoresis, Nausea - Risk Factors Non-Orthopedic Risk Factor: Negative DVT Risk Factors: Negative Septic Arthritis Risk Factor: Negative Compartment Syndrome Risk Factors: Pain - Allergies/Home Medications Allergies/Adverse Reactions: Allergies Allergy/AdvReac Type Severity Reaction Status Date / Time No Known Allergies Allergy Verified 12/26/16 10:30 PMH/Surg Hx/FS Hx/Imm Hx Previously Healthy: Yes Endocrine/Hematology History: Denies: Hx Anticoagulant Therapy, Hx Blood Disorders, Hx Diabetes, Hx Unexplained Bleeding Cardiovascular History: Reports: Hx Hypercholesterolemia - No meds, Hx Hypertension, Other Cardiovascular Problems/Disorders - high cholesterol, medication prescribed early November 2016 Denies: Hx Pacemaker/ICD Respiratory History: Denies: Other Respiratory Problems/Disorders GI History: Reports: Other GI Disorders - Hx umbilical hernia repair, cholecystitis History: Reports: Hx Kidney Stones - KIDNEY STONES 08/2016 Musculoskeletal History: Reports: Hx Arthritis - HIPS ULYSSES, Other Musculoskeletal History - 2 surgeries right knee, probable arthritis knees, occ back spasms Sensory History: Reports: Hx Cataracts, Hx Contacts or Glasses - reading Denies: Hx Hearing Aid Opthamlomology History: Reports: Hx Cataracts, Hx Contacts or Glasses - reading Psychiatric History: Denies: Hx Panic Disorder - Surgical History Surgery Procedure, Year, and Place: Hernia repair 04/2012,LT ear drum ruptured surgery 1982, bone infection R kneecap surgical treatment, appendectomy 1992, 2006 additional R knee surgery,gallbladder Hx Anesthesia Reactions: No - Immunization History Hx Pertussis Vaccination: No Immunizations Up to Date: Yes Infectious Disease History: No Infectious Disease History: Denies: History Other Infectious Disease, Traveled Outside the [place] in Last 30 Days - Family History Known Family History: Positive: Cardiac Disease - mother with pacemaker, Other - lung cancer - Social History Occupation: Employed Full-time Lives: With Family Alcohol Use: None Hx Substance Use: No Substance Use Type: Reports: None Hx Tobacco Use: Yes - not currently Smoking Status (MU): Former Smoker Amount Used/How Often: smoked approx 1/2 pack per week Length of Time of Smoking/Using Tobacco: 1995 Have You Smoked in the Last Year: No Review of Systems Constitutional: Negative Negative: Fever, Chills, Fatigue Eyes: Negative Cardiovascular: Negative Respiratory: Negative Positive: Arthralgia - dorsal wrist pain Skin: Negative Neurological: Negative All Other Systems Reviewed And Are Negative: Yes Physical Exam Triage Information Reviewed: Yes Vital Signs On Initial Exam: Initial Vitals Temp Pulse Resp BP Pulse Ox 98.8 F 85 16 180/95 99 05/29/17 14:00 05/29/17 14:00 05/29/17 14:00 05/29/17 14:00 05/29/17 14:00 Vital Signs Reviewed: Yes Appearance: Positive: Well-Appearing, Well-Nourished Skin: Positive: Warm, Skin Color Reflects Adequate Perfusion Head/Face: Positive: Normal Head/Face Inspection Neck: Positive: Nontender, No Lymphadenopathy Respiratory/Lung Sounds: Positive: Clear to Auscultation, Breath Sounds Present Cardiovascular: Positive: Normal, RRR, Pulses are Symmetrical in both Upper and Lower Extremities Musculoskeletal: Positive: Pain @ - dorsal right wrist with flexion Neurological: Positive: Speech Normal Psychiatric: Positive: Normal - Haresh Coma Scale Coma Scale Total: 15 Diagnostics - Vital Signs Vital Signs Temp Pulse Resp BP Pulse Ox 05/29/17 16:21 97.9 F 77 16 136/72 96 05/29/17 14:00 98.8 F 85 16 180/95 99 - Laboratory Lab Statement: Any lab studies that have been ordered have been reviewed, and results considered in the medical decision making process. Course/Dx - Course Course Of Treatment: Xray of wrist showed no acute findings. Patient requesting carlos wrap. Wrist was carlos wrapped and note given for work x 1 day. - Diagnoses Differential Diagnosis/HQI/PQRI: Positive: Strain, Sprain Provider Diagnoses: Wrist contusion Discharge - Discharge Plan Condition: Stable Disposition: HOME Prescriptions: Ibuprofen TAB* [Motrin TAB* 600 MG] 600 mg PO Q8H PRN #30 tab PRN Reason: Pain Patient Education Materials: Contusion in Adults (ED) Forms: *Work Release Referrals: Arian Del Valle MD [Primary Care Provider] - Additional Instructions: Ibuprofen 600mg three times daily elevate ice
== END 2017-05-29 16:23 | disposition home or self-care (01) ==
LOC: ED 13:42
DX: S60.211A Contusion of right wrist, initial encounter (principal); W23.0XXA Caught, crushed, jammed, or pinched between moving objects, initial encounter; Y93.9 Activity, unspecified; Y92.9 Unspecified place or not applicable; E78.00 Pure hypercholesterolemia, unspecified; I10 Essential (primary) hypertension; Z87.442 Personal history of urinary calculi; Z90.49 Acquired absence of other specified parts of digestive tract; Z87.891 Personal history of nicotine dependence
CPT/HCPCS: 99281

== ENCOUNTER 2017-07-15 14:39 | Emergency (ER) | payer MEDICARE, MEDICAID ==
[2017-07-15 16:53] LABS: ABS Basophils 0 10^3/ul (0-0.2); ABS Eosinophils 0.1 10^3/ul (0-0.6); ABS Lymphocytes 1.5 10^3/ul (1.0-4.8); ABS Monocytes 0.4 10^3/ul (0-0.8); ABS Neutrophils 5.2 10^3/ul (1.5-7.7); ABS Nucleated RBC 0 10^3/ul; Hematocrit 40 % (42-52); Hemoglobin 13.7 g/dl (14.0-18.0); Lymphocyte % 20.4 % (25-47); Mean Corpuscular HGB Conc 34 g/dl (31-36); Mean Corpuscular Hemoglobin 31 pg (27-31); Mean Corpuscular Volume 92 fL (80-94); Mean Platelet Volume 8 um3 (7.4-10.4); Nucleated Red Blood Cells % 0; Platelet Count 160 10^3/ul (150-450); Red Blood Count 4.39 10^6/ul (4.0-5.4); Red Cell Distribution Width 15 % (10.5-15); White Blood Count 7.3 10^3/ul (3.5-10.8)
[2017-07-15 17:08] LABS: EGFR Non-African American 87.2 (>60)
--- NOTE | 2017-07-15 17:12 | RAD ---
Indication: Right flank pain. CT of the abdomen and pelvis was performed without oral or IV contrast administration. Coronal and sagittal reconstructed images were obtained. The lung bases demonstrate no evidence of pleural fluid. Dependent changes are noted in the right lung base. No alveolar consolidation is noted. The heart demonstrates no pericardial effusion. The liver demonstrates diffuse decrease in density of the liver consistent with hepatic steatosis. There is no intrahepatic ductal dilatation. The patient status post cholecystectomy. The common duct is not dilated. The pancreas demonstrates no mass or pancreatic ductal dilatation. Spleen is normal in size. No adrenal lesions are noted. The kidneys demonstrate symmetric nephrograms without hydronephrosis. No hydroureter is noted in either kidney. Tiny nonobstructing calculi lower pole left kidney. Aorta and inferior vena cava are unremarkable. No evidence of abdominal aortic aneurysm is noted although atherosclerosis is noted. No retroperitoneal lymphadenopathy is identified. CT of pelvis demonstrates no dilated loops of bowel present. The colon is filled with stool. Terminal ileum is unremarkable. Diverticulosis without evidence of diverticulitis. The urinary bladder is grossly unremarkable. There is evidence of small calculi in the dependent portion of the urinary bladder which may represent recently passed calculi. IMPRESSION: Calcifications in the bladder. These may represent recently passed calculi. No hydronephrosis of either kidney is noted. Appendix is not visualized.
--- NOTE | 2017-07-15 19:07 | ED ---
Porfirio Phillips Abhishek, scribed for Adán Noble MD on 07/15/17 at 1645 . Abdominal Pain/Male - HPI Summary HPI Summary: This patient is a 62 year old M presenting to [facility] with a chief complaint of hematochezia episode which occurred 07/13/17. Pt has not had another BM since Sunday (07/13/17). Pertinent PMHx includes Hernia at 2011 on the left side which Dr. Frank repaired. The abd pain is described as a sudden. Pt also reports decreased appetite, dehydration, and N/V and states that he is not able to keep food or water down. The hematochezia episode was described as primarily containing blood and little to no stool. - History of Current Complaint Chief Complaint: EDAbdPain Stated Complaint: VOMITING Time Seen by Provider: 07/15/17 15:53 Hx Obtained From: Patient Onset/Duration: Sudden Onset, Lasting Days - since 07/13/17 (night), Still Present Timing: Constant Severity Initially: Mild Severity Currently: Mild Location: Diffuse Radiates: No Aggravating Factor(s): Food, Other: - fluids Alleviating Factor(s): Nothing Associated Signs And Symptoms: Positive: Blood in Stool - hematochezia, Nausea, Vomiting - Allergies/Home Medications Allergies/Adverse Reactions: Allergies Allergy/AdvReac Type Severity Reaction Status Date / Time No Known Allergies Allergy Verified 07/15/17 14:40 PMH/Surg Hx/FS Hx/Imm Hx Endocrine/Hematology History: Denies: Hx Anticoagulant Therapy, Hx Blood Disorders, Hx Diabetes, Hx Unexplained Bleeding Cardiovascular History: Reports: Hx Hypercholesterolemia - No meds, Hx Hypertension, Other Cardiovascular Problems/Disorders - high cholesterol, medication prescribed early November 2016 Denies: Hx Pacemaker/ICD Respiratory History: Denies: Other Respiratory Problems/Disorders GI History: Reports: Other GI Disorders - Hx umbilical hernia repair, cholecystitis History: Reports: Hx Kidney Stones - KIDNEY STONES 08/2016 Musculoskeletal History: Reports: Hx Arthritis - HIPS ULYSSES, Other Musculoskeletal History - 2 surgeries right knee, probable arthritis knees, occ back spasms Sensory History: Reports: Hx Cataracts, Hx Contacts or Glasses - reading Opthamlomology History: Reports: Hx Cataracts, Hx Contacts or Glasses - reading Psychiatric History: Denies: Hx Panic Disorder - Surgical History Surgery Procedure, Year, and Place: Hernia repair 04/2012,LT ear drum ruptured surgery 1982, bone infection R kneecap surgical treatment, appendectomy 1992, 2006 additional R knee surgery,gallbladder Hx Anesthesia Reactions: No Infectious Disease History: No Infectious Disease History: Denies: History Other Infectious Disease, Traveled Outside the [place] in Last 30 Days - Family History Known Family History: Positive: Cardiac Disease - mother with pacemaker, Other - lung cancer - Social History Alcohol Use: None Alcohol Amount: since 2013 Hx Substance Use: No Substance Use Type: Reports: None Hx Tobacco Use: Yes - not currently Smoking Status (MU): Former Smoker Amount Used/How Often: smoked approx 1/2 pack per week Length of Time of Smoking/Using Tobacco: 1995 Have You Smoked in the Last Year: No Review of Systems Positive: Other - Decreased appetite and dehydration Eyes: Negative Positive: Epistaxis Cardiovascular: Negative Respiratory: Negative Gastrointestinal: Other - Hematochezia Positive: Abdominal Pain, Vomiting, Nausea, Other - No BM since 07/13/17 (night) Genitourinary: Negative Musculoskeletal: Negative Skin: Negative Neurological: Negative Psychological: Normal All Other Systems Reviewed And Are Negative: Yes Physical Exam - Summary Physical Exam Summary: Appearance: The patient is well-nourished in no acute distress and in no acute pain. Skin: The skin is warm and dry and skin color reflects adequate perfusion. HEENT: ~The head is normocephalic and atraumatic. The pupils are equal and reactive. The conjunctivae are clear and without drainage. ~Nares are patent and without drainage. ~Mouth reveals moist mucous membranes and the throat is without erythema and exudate. ~The external ears are intact. The ear canals are patent and without drainage. The tympanic membranes are intact. Neck: the neck is supple with full range of motion and non-tender. There are no carotid bruits. ~There is no neck vein distension. Respiratory: Chest is non-tender. ~Lungs are clear to auscultation and breath sounds are symmetrical and equal. Cardiovascular: Heart is regular rate and rhythm. ~There is no murmur or rub auscultated. ~~There is no peripheral edema and pulses are symmetrical and equal. Abdomen: Tender in the RLQ, Slight voluntary guarding, and No rebound Musculoskeletal: There is no back tenderness noted. ~Extremities are non-tender with full range of motion. ~There is good capillary refill. ~There is no peripheral edema or calf tenderness elicited. Neurological: Patient is alert and oriented to person, place and time. ~The patient has symmetrical motor strength in all four extremities. ~Cranial nerves are grossly intact. Deep tendon reflexes are symmetrical and equal in all four extremities. Psychiatric: The patient has an appropriate affect and does not exhibit any anxiety or depression. Triage Information Reviewed: Yes Vital Signs On Initial Exam: Initial Vitals Temp Pulse Resp BP Pulse Ox 97.3 F 61 16 182/102 99 07/15/17 14:41 07/15/17 14:41 07/15/17 14:41 07/15/17 14:41 07/15/17 14:41 Vital Signs Reviewed: Yes Diagnostics - Vital Signs Vital Signs Temp Pulse Resp BP Pulse Ox 07/15/17 15:17 59 97 07/15/17 14:41 97.3 F 61 16 182/102 99 - Laboratory Lab Results: Lab Results 07/15/17 07/15/17 07/15/17 Range/Units 16:44 16:44 16:44 WBC 7.3 (3.5-10.8) 10^3/ul RBC 4.39 (4.0-5.4) 10^6/ul Hgb 13.7 L (14.0-18.0) g/dl Hct 40 L (42-52) % MCV 92 (80-94) fL MCH 31 (27-31) pg MCHC 34 (31-36) g/dl RDW 15 (10.5-15) % Plt Count 160 (150-450) 10^3/ul MPV 8 (7.4-10.4) um3 Neut % (Auto) 71.4 (38-83) % Lymph % (Auto) 20.4 L (25-47) % [place] % (Auto) 6.0 (1-9) % Eos % (Auto) 2.0 (0-6) % Baso % (Auto) 0.2 (0-2) % Absolute Neuts (auto) 5.2 (1.5-7.7) 10^3/ul Absolute Lymphs (auto) 1.5 (1.0-4.8) 10^3/ul Absolute Monos (auto) 0.4 (0-0.8) 10^3/ul Absolute Eos (auto) 0.1 (0-0.6) 10^3/ul Absolute Basos (auto) 0 (0-0.2) 10^3/ul Absolute Nucleated RBC 0 10^3/ul Nucleated RBC % 0 Sodium 136 (133-145) mmol/L Potassium 3.6 (3.5-5.0) mmol/L Chloride 102 (101-111) mmol/L Carbon Dioxide 28 (22-32) mmol/L Anion Gap 6 (2-11) mmol/L BUN 18 (6-24) mg/dL Creatinine 0.88 (0.67-1.17) mg/dL Est GFR ( Amer) 112.1 (>60) Est GFR (Non-Af Amer) 87.2 (>60) BUN/Creatinine Ratio 20.5 H (8-20) Glucose 83 (70-100) mg/dL Lactic Acid 0.6 (0.5-2.0) mmol/L Calcium 9.6 (8.6-10.3) mg/dL Total Bilirubin 2.20 H (0.2-1.0) mg/dL AST 25 (13-39) U/L ALT 25 (7-52) U/L Alkaline Phosphatase 84 (34-104) U/L C-Reactive Protein 18.40 H (< 5.00) mg/L Total Protein 7.2 (6.4-8.9) g/dL Albumin 4.2 (3.2-5.2) g/dL Globulin 3.0 (2-4) g/dL Albumin/Globulin Ratio 1.4 (1-3) Lipase 15 (11.0-82.0) U/L Result Diagrams: 07/15/17 16:44 07/15/17 16:44 Lab Statement: Any lab studies that have been ordered have been reviewed, and results considered in the medical decision making process. - CT CT A/P CT Interpretation Completed By: Radiologist - CT A/P reveals Calcifications in the bladder. These may represent recently passed calculi. No hydronephrosis of either kidney is noted. Appendix is not visualized. ED Physician has reviewed this radiology report and agrees. Abdominal Pain Fem Course/Dx - Course Course Of Treatment: Mr. Patel presented with RLQ pain for a dya or two intermittently. It started after he passed BRBPR once on Sunday. His W/U was negative aside from a kidney stone in his bladder found on CT which he likely passed recently. His U/A is pending and he feels fine now. I espect he will go home pending his U/A. - Diagnoses Provider Diagnoses: Abdominal pain, Kidney stone Discharge - Discharge Plan Condition: Stable Disposition: OTHER Discharge Disposition Comment: Signed out to Dr. Mojica at change of shift Patient Education Materials: Kidney Stones (ED), Acute Abdominal Pain (ED) Referrals: Arian Del Valle MD [Primary Care Provider] - (Follow up with PCP within 2 to 3 days.) Additional Instructions: RETURN TO THE EMERGENCY DEPARTMENT FOR CHANGING OR WORSENING SYMPTOMS. The documentation as recorded by the Porfirio conley Abhishek accurately reflects the service I personally performed and the decisions made by me, Adán Noble MD.
[2017-07-15 19:29] LABS: Urine Appearance Cloudy; Urine Blood Negative (Negative); Urine Color Yellow; Urine Ketones Trace (Negative); Urine Protein Negative (Negative); Urine Specific Gravity 1.029 (1.010-1.030); Urine Urobilinogen Negative (Negative)
--- NOTE | 2017-07-15 20:52 | ED ---
IMica Nilda, scribed for Thomas Mojica MD on 07/15/17 at 2048 . Progress - Progress Note Progress Note: THis pt was signed out by Dr. Noble, pending UA, awaiting Dispo. UA is negative. Pt is stable and will be D/C home according to Dr. Alexandre plan. Course/Dx - Course Course Of Treatment: Mr. Patel presented with RLQ pain for a dya or two intermittently. It started after he passed BRBPR once on Sunday. His W/U was negative aside from a kidney stone in his bladder found on CT which he likely passed recently. His U/A is pending and he feels fine now. I espect he will go home pending his U/A. - Diagnoses Provider Diagnoses: Abdominal pain, Kidney stone The documentation as recorded by the scribeMica Nilda accurately reflects the service I personally performed and the decisions made by me, Thomas Mojica MD.
[2017-07-15 21:18] VITALS: BP 151/93
== END 2017-07-15 21:26 ==
LOC: ED 14:39
DX: N20.0 Calculus of kidney (principal); R10.31 Right lower quadrant pain; Z87.891 Personal history of nicotine dependence; R04.0 Epistaxis
CPT/HCPCS: 36415; 74176; 80053; 81003; 83605; 83690; 85025; 86140; 99284

== ENCOUNTER 2017-07-28 14:06 | Emergency (ER) | payer MEDICARE, MEDICAID ==
[2017-07-28 15:23] VITALS: BP 137/87
--- NOTE | 2017-07-28 16:10 | UC ---
Skin Complaint HPI - HPI Summary HPI Summary: Pt presents with growths to right thumb. First noticed about a month ago, seem to be spreading. He has not tried anything for these. His friend told him it was warts and he should have them removed. Denies pain, fever, chills, SOB, chest pain, weakness, fatigue, or recent illness. - History of Current Complaint Chief Complaint: UCUpperExtremity Time Seen by Provider: 07/28/17 15:48 Stated Complaint: THUMB INJURY Hx Obtained From: Patient Onset/Duration: Gradual Onset Skin Exposure Onset/Duration: Weeks Ago Timing: Constant Pain Intensity: 0 - Allergy/Home Medications Allergies/Adverse Reactions: Allergies Allergy/AdvReac Type Severity Reaction Status Date / Time No Known Allergies Allergy Verified 07/28/17 15:22 Review of Systems Constitutional: Negative Skin: Other - 3 wars to right hand Respiratory: Negative Cardiovascular: Negative Gastrointestinal: Negative Musculoskeletal: Negative Neurological: Negative Psychological: Negative All Other Systems Reviewed And Are Negative: Yes PMH/Surg Hx/FS Hx/Imm Hx Previously Healthy: Yes Endocrine History: Dyslipidemia Other History Of: Negative For: Anticoagulant Therapy - Surgical History Surgical History: Yes Surgery Procedure, Year, and Place: Hernia repair 04/2012,LT ear drum ruptured surgery 1982, bone infection R kneecap surgical treatment, appendectomy 1992, 2006 additional R knee surgery,gallbladder - Family History Known Family History: Positive: Cardiac Disease - mother with pacemaker, Other - lung cancer - Social History Alcohol Use: None Alcohol Amount: since 2013 Substance Use Type: None Smoking Status (MU): Former Smoker Amount Used/How Often: smoked approx 1/2 pack per week Length of Time of Smoking/Using Tobacco: 1995 Have You Smoked in the Last Year: No When Did the Patient Quit Smoking/Using Tobacco: quit in 1995 Physical Exam Triage Information Reviewed: Yes Appearance: Well-Appearing, No Pain Distress, Well-Nourished Vital Signs: Initial Vital Signs Temp 97.8 F 07/28/17 15:19 Pulse 58 07/28/17 15:19 Resp 18 07/28/17 15:19 BP 137/87 07/28/17 15:19 Pulse Ox 100 07/28/17 15:19 Vital Signs Reviewed: Yes Neck: Positive: Supple, Nontender, No Lymphadenopathy Respiratory: Positive: Lungs clear, Normal breath sounds, No respiratory distress, No accessory muscle use Cardiovascular: Positive: RRR, No Murmur, Pulses Normal, Brisk Capillary Refill - Right hand and all fingers Musculoskeletal: Positive: Strength Intact - Right thumb, ROM Intact - Right thumb Neurological: Positive: Alert, Other: - Sensations intact right hand and all digits Psychological: Positive: Age Appropriate Behavior Skin: Positive: Other - On the right thumb pad there is a 5mm diameter common wart. On the radial aspect of the right index finger there is a 2mm common wart. On the finger pad of the right index finger there is a 1mm common wart. None are bleeding, drainage, erythematous, or ulcerated. Course/Dx - Course Course Of Treatment: Common wart on hand. Will try condylox and have him f/u with dermatology and these will likely need to be surgically removed or undergo cryo therapy. - Diagnoses Provider Diagnoses: Common wart (three) of right thumb and index finger Discharge - Discharge Plan Condition: Stable Disposition: HOME Prescriptions: Podofilox [Condylox] 0.5 % TOPICAL BID #1 tube Patient Education Materials: Common Wart (ED) Referrals: Arian Del Valle MD [Primary Care Provider] - Smiley Mirza MD [Medical Doctor] - As Soon As Possible Additional Instructions: If you develop a fever, shortness of breath, chest pain, new or worsening symptoms - please call your PCP or go to the ED. Your blood pressure was high at todays visit. Please see your primary provider within 4 weeks for recheck and re-evaluation.
== END 2017-07-28 16:20 | disposition home or self-care (01) ==
LOC: UCEAST 14:06
DX: B07.8 Other viral warts (principal); E78.5 Hyperlipidemia, unspecified; Z87.891 Personal history of nicotine dependence
CPT/HCPCS: 99212; G0463

== ENCOUNTER → 2017-09-12 09:33 | Emergency (ER) | payer MEDICARE, MEDICAID ==
[~2017-09-12 09:33] MED LIST changes: -Acetaminophen TAB* 325 MG PO PRN; -Buffered Lidocaine 0.9% SYRIN* 5 ML/SYR SYRINGE INTRADERM ONE; +Ketorolac INJ* 60 MG/2 ML VIAL IM ONE
--- NOTE | 2017-09-12 12:06 | RAD ---
Indication: Shoulder pain. 4 views of left shoulder demonstrates AC joint arthritis. No fracture is noted. Glenohumeral joint arthritis is noted. IMPRESSION: AC joint arthritis. Glenohumeral joint arthritis is noted.
[2017-09-12 12:44] VITALS: BP 180/101
--- NOTE | 2017-09-13 18:40 | ED ---
Bladimir Phillips Angela, scribed for Farhat Mulligan MD on 09/12/17 at 1030 . Upper Extremity Pain - HPI Summary HPI Summary: This pt is a 62 y/o male presenting [facility] c/o left shoulder pain x1 week. Pt reports he does not know how if he injured his left shoulder. Unknown if pt had fall or trauma that exacerbated his shoulder pain. He has decreased ROM of left shoulder secondary to pain. Pt notes his pain radiates from his left shoulder down his left upper arm. His pain is aggravated with abduction of left arm. Pt' s pain is alleviated with rest. - History of Current Complaint Chief Complaint: EDExtremityUpper Stated Complaint: LT SHOULDER INJURY Time Seen by Provider: 09/12/17 10:14 Hx Obtained From: Patient Mechanism Of Injury: Unknown Onset/Duration: Started Days Ago, Still Present Timing: Lasting Days Severity Currently: Moderate Pain Location: Shoulder - left Aggravating Factor(s): Movement, Abduction Alleviating Factor(s): Rest Associated Signs & Symptoms: Positive: Negative - Allergies/Home Medications Allergies/Adverse Reactions: Allergies Allergy/AdvReac Type Severity Reaction Status Date / Time No Known Allergies Allergy Verified 07/28/17 15:22 PMH/Surg Hx/FS Hx/Imm Hx Endocrine/Hematology History: Denies: Hx Anticoagulant Therapy, Hx Blood Disorders, Hx Diabetes, Hx Unexplained Bleeding Cardiovascular History: Reports: Hx Hypercholesterolemia - No meds, Hx Hypertension, Other Cardiovascular Problems/Disorders - high cholesterol, medication prescribed early November 2016 Denies: Hx Pacemaker/ICD Respiratory History: Denies: Other Respiratory Problems/Disorders GI History: Reports: Other GI Disorders - Hx umbilical hernia repair, cholecystitis History: Reports: Hx Kidney Stones - KIDNEY STONES 08/2016 Musculoskeletal History: Reports: Hx Arthritis - HIPS ULYSSES, Other Musculoskeletal History - 2 surgeries right knee, probable arthritis knees, occ back spasms Sensory History: Reports: Hx Cataracts, Hx Contacts or Glasses - reading Opthamlomology History: Reports: Hx Cataracts, Hx Contacts or Glasses - reading Psychiatric History: Denies: Hx Panic Disorder - Surgical History Surgery Procedure, Year, and Place: Hernia repair 04/2012,LT ear drum ruptured surgery 1982, bone infection R kneecap surgical treatment, appendectomy 1992, 2006 additional R knee surgery,gallbladder Hx Anesthesia Reactions: No Infectious Disease History: No Infectious Disease History: Denies: History Other Infectious Disease, Traveled Outside the [place] in Last 30 Days - Family History Known Family History: Positive: Cardiac Disease - mother with pacemaker, Other - lung cancer - Social History Alcohol Use: None Alcohol Amount: since 2013 Hx Substance Use: No Substance Use Type: Reports: None Hx Tobacco Use: Yes - not currently Smoking Status (MU): Former Smoker Amount Used/How Often: smoked approx 1/2 pack per week Length of Time of Smoking/Using Tobacco: 1995 Have You Smoked in the Last Year: No Review of Systems Negative: Fever, Chills ENT: Negative Cardiovascular: Negative Respiratory: Negative Gastrointestinal: Negative Musculoskeletal: Other - left shoulder pain Positive: Decreased ROM - left shoulder Neurological: Negative All Other Systems Reviewed And Are Negative: Yes Physical Exam - Summary Physical Exam Summary: VITAL SIGNS: Reviewed. GENERAL: Patient is a well-developed and nourished male who is lying comfortable in the stretcher. Patient is not in any acute respiratory distress. HEAD AND FACE: No signs of trauma. No ecchymosis, hematomas or skull depressions. No sinus tenderness. EYES: PERRLA, EOMI x 2, No injected conjunctiva, no nystagmus. EARS: Hearing grossly intact. Ear canals and tympanic membranes are within normal limits. MOUTH: Oropharynx within normal limits. NECK: Supple, trachea is midline, no adenopathy, no JVD, no carotid bruit, no c- spine tenderness, neck with full ROM. CHEST: Symmetric, no tenderness at palpation LUNGS: Clear to auscultation bilaterally. No wheezing or crackles. CVS: Regular rate and rhythm, S1 and S2 present, no murmurs or gallops appreciated. ABDOMEN: Soft, non-tender. No signs of distention. No rebound no guarding, and no masses palpated. Bowel sounds are normal. EXTREMITIES: no edema, no cyanosis or clubbing. LUE: no deformity. No ecchymosis. Decreased ROM of left shoulder secondary to pain. NEURO: Alert and oriented x 3. No acute neurological deficits. Speech is normal and follows commands. SKIN: Dry and warm Triage Information Reviewed: Yes Vital Signs On Initial Exam: Initial Vitals Temp Pulse Resp BP Pulse Ox 98.3 F 65 18 181/98 96 09/12/17 09:38 09/12/17 09:38 09/12/17 09:38 09/12/17 09:38 18 09:38 Vital Signs Reviewed: Yes Diagnostics - Vital Signs Vital Signs Temp Pulse Resp BP Pulse Ox 09/12/17 09:38 98.3 F 65 18 181/98 96 - Laboratory Lab Statement: Any lab studies that have been ordered have been reviewed, and results considered in the medical decision making process. - Radiology Left shoulder XR Xray Interpretation: Positive (See Comments) - IMPRESSION: AC joint arthritis. Glenohumeral joint arthritis is noted. Dr. Mulligan has reviewed this radiology report. Radiology Interpretation Completed By: Radiologist Course/Dx - Course Assessment/Plan: This pt is a 62 y/o male presenting to [facility] c/o left shoulder pain x1 week. Pt reports he does not know how if he injured his left shoulder. He has decreased ROM of left shoulder secondary to pain. Pt notes his pain radiates from his left shoulder down his left upper arm. His pain is aggravated with abduction of left arm. Left shoulder XR shows AC joint arthritis. Glenohumeral joint arthritis is noted. XR is negative for fracture or dislocation. In the ED course the pt was given Toradol. After medication, pt reports his pain has resolved. He denies any other complaints. Therefore, he will be discharged to home with follow up from her PCP. Pt will be given a prescription for Vail for the pain. I discussed all the findings and test results with the patient. Patient was instructed to return to the emergency room immediately if any of the symptoms return or worsens. Plan of care was discussed with the patient and understands and agrees. All questions were answered at patient satisfaction. There were no further complaints or concerns. He is instructed to return to the ED for any worsening or new symptoms. Pt is hemodynamically stable, alert and oriented x3. - Diagnoses Provider Diagnoses: AC (acromioclavicular) joint arthritis, Arthritis of left glenohumeral joint Discharge - Discharge Plan Condition: Stable Disposition: HOME Prescriptions: HYDROcodone/ACETAMIN 5-325 MG* [Vail 5-325 TAB*] 1 tab PO Q6H PRN #12 tab MDD 4 tabs PRN Reason: Pain Patient Education Materials: Arthritis (ED) Referrals: Sohan Contreras MD [Primary Care Provider] - Additional Instructions: Please follow up with your primary care provider. Use shoulder immobilizer for comfort. RETURN TO THE ED FOR ANY WORSENING SYMPTOMS. The documentation as recorded by the Bladimir conley Angela accurately reflects the service I personally performed and the decisions made by , Farhat Mulligan MD.
== END | disposition home or self-care (01) ==
LOC: ED 09:33
DX: M19.012 Primary osteoarthritis, left shoulder (principal); E78.00 Pure hypercholesterolemia, unspecified; I10 Essential (primary) hypertension; Z87.891 Personal history of nicotine dependence
CPT/HCPCS: 99282

== ENCOUNTER 2018-03-06 20:49 | Emergency (ER) | payer MEDICARE, MEDICAID ==
--- NOTE | 2018-03-06 22:30 | ED ---
Complex/Multi-Sys Presentation - HPI Summary HPI Summary: This is Angel conley, documenting for attending Thomas Mojica MD. Pt is a 62 y/o M c/o intermittent pain in L shoulder, bilat knee caps, lower back onset ~1999, this date. Pain is rated a 5/10 and described as aching. Assoc. Sx: L shoulder pain, bilat knee cap pain, lower back pain. Denies: fever. - History Of Current Complaint Chief Complaint: EDGeneral Time Seen by Provider: 03/06/18 22:08 Hx Obtained From: Patient Onset/Duration: Sudden Onset Timing: Intermittent, Lasting: Severity Currently: Moderate - Pain rated a 5/10 Character: Dull - "aching" Associated Signs And Symptoms: Positive: Back Pain - Lower. Negative: Fever - Allergies/Home Medications Allergies/Adverse Reactions: Allergies Allergy/AdvReac Type Severity Reaction Status Date / Time No Known Allergies Allergy Verified 07/28/17 15:22 PMH/Surg Hx/FS Hx/Imm Hx Endocrine/Hematology History: Denies: Hx Anticoagulant Therapy, Hx Blood Disorders, Hx Diabetes, Hx Unexplained Bleeding Cardiovascular History: Reports: Hx Hypercholesterolemia - No meds, Hx Hypertension, Other Cardiovascular Problems/Disorders - high cholesterol, medication prescribed early November 2016 Denies: Hx Pacemaker/ICD Respiratory History: Denies: Other Respiratory Problems/Disorders GI History: Reports: Other GI Disorders - Hx umbilical hernia repair, cholecystitis History: Reports: Hx Kidney Stones - KIDNEY STONES 08/2016 Musculoskeletal History: Reports: Hx Arthritis - HIPS ULYSSES, Other Musculoskeletal History - 2 surgeries right knee, probable arthritis knees, occ back spasms Sensory History: Reports: Hx Cataracts, Hx Contacts or Glasses - reading Opthamlomology History: Reports: Hx Cataracts, Hx Contacts or Glasses - reading Psychiatric History: Denies: Hx Panic Disorder - Surgical History Surgery Procedure, Year, and Place: Hernia repair 04/2012,LT ear drum ruptured surgery 1982, bone infection R kneecap surgical treatment, appendectomy 1992, 2006 additional R knee surgery,gallbladder Hx Anesthesia Reactions: No Infectious Disease History: No Infectious Disease History: Denies: History Other Infectious Disease, Traveled Outside the [place] in Last 30 Days - Family History Known Family History: Positive: Cardiac Disease - mother with pacemaker, Other - lung cancer - Social History Occupation: Employed Full-time Lives: With Family Alcohol Use: None Alcohol Amount: since 2013 Hx Substance Use: No Substance Use Type: Reports: None Hx Tobacco Use: Yes - not currently Smoking Status (MU): Former Smoker Amount Used/How Often: smoked approx 1/2 pack per week Length of Time of Smoking/Using Tobacco: 1995 Have You Smoked in the Last Year: No Review of Systems Negative: Fever Positive: Other - POS: bilat knee cap pain, L shoulder pain, lower back pain All Other Systems Reviewed And Are Negative: Yes Physical Exam - Summary Physical Exam Summary: VITAL SIGNS: Reviewed. GENERAL: Patient is a well-developed and nourished male who is lying comfortable in the stretcher. Patient is not in any acute respiratory distress. HEAD AND FACE: No signs of trauma. No ecchymosis, hematomas or skull depressions. No sinus tenderness. EYES: PERRLA, EOMI x 2, No injected conjunctiva, no nystagmus. EARS: Hearing grossly intact. Ear canals and tympanic membranes are within normal limits. MOUTH: Oropharynx within normal limits. NECK: Supple, trachea is midline, no adenopathy, no JVD, no carotid bruit, no c- spine tenderness, neck with full ROM. CHEST: Symmetric, no tenderness at palpation LUNGS: Clear to auscultation bilaterally. No wheezing or crackles. CVS: Regular rate and rhythm, S1 and S2 present, no murmurs or gallops appreciated. ABDOMEN: Soft, non-tender. No signs of distention. No rebound no guarding, and no masses palpated. Bowel sounds are normal. EXTREMITIES: FROM in all major joints, no edema, no cyanosis or clubbing. NEURO: Alert and oriented x 3. No acute neurological deficits. Speech is normal and follows commands. SKIN: Dry and warm Triage Information Reviewed: Yes Vital Signs On Initial Exam: Initial Vitals Temp Pulse Resp BP Pulse Ox 98.3 F 67 20 181/99 98 03/06/18 20:58 03/06/18 20:58 03/06/18 20:58 03/06/18 20:58 03/06/18 20:58 Vital Signs Reviewed: Yes Diagnostics - Vital Signs Vital Signs Temp Pulse Resp BP Pulse Ox 03/06/18 20:58 98.3 F 67 20 181/99 98 - Laboratory Result Diagrams: 03/06/18 22:51 03/06/18 22:51 Lab Statement: Any lab studies that have been ordered have been reviewed, and results considered in the medical decision making process. Complex Multi-Symp Course/Dx Course Of Treatment: Patient was seen by provider. No serious threats found and pt will be D/C home. - Diagnoses Provider Diagnoses: Muscle pain Discharge - Sign-Out/Discharge Documenting (check all that apply): Patient Departure - Discharge Plan Condition: Stable Disposition: HOME Prescriptions: Ibuprofen TAB* [Motrin TAB* 800 MG] 800 mg PO Q6H PRN #30 tab PRN Reason: Pain Patient Education Materials: Musculoskeletal Pain (ED) Referrals: Sohan Contreras MD [Primary Care Provider] - 2 Days Additional Instructions: RETURN TO THE EMERGENCY DEPARTMENT FOR CHANGING OR WORSENING SYMPTOMS. FOLLOW UP WITH PCP IN 1-2 DAYS. - Attestation Statements Document Initiated by Scribe: Yes Documenting Scribe: Angel Dick Provider For Whom Scribe is Documenting (Include Credential): Thomas Mojica MD Scribe Attestation: Angel Phillips, scribed for Thomas Mojica MD on 03/07/18 at 0225.
[2018-03-06] MEDS ORDERED: NS 0.9% 1000 ML* 1,000 ML IV ONE (22:35)
[2018-03-06] MEDS ORDERED: Ketorolac INJ* 30 MG/ML 1 ML VIAL IV PUSH ONE (22:48)
[2018-03-06 23:01] LABS: ABS Basophils 0.1 10^3/ul (0-0.2); ABS Eosinophils 0.1 10^3/ul (0-0.6); ABS Lymphocytes 2.2 10^3/ul (1.0-4.8); ABS Monocytes 0.7 10^3/ul (0-0.8); ABS Neutrophils 6.6 10^3/ul (1.5-7.7); ABS Nucleated RBC 0 10^3/ul; Eosinophil % 1.3 % (0-6); Hematocrit 39 % (42-52); Hemoglobin 13.2 g/dl (14.0-18.0); Lymphocyte % 22.6 % (25-47); Mean Corpuscular HGB Conc 34 g/dl (31-36); Mean Corpuscular Hemoglobin 31 pg (27-31); Mean Corpuscular Volume 91 fL (80-94); Nucleated Red Blood Cells % 0; Platelet Count 168 10^3/ul (150-450); Red Blood Count 4.24 10^6/ul (4.00-5.40); Red Cell Distribution Width 14 % (10.5-15); White Blood Count 9.8 10^3/ul (3.5-10.8)
[2018-03-06 23:25] LABS: EGFR Non-African American 81.8 (>60)
[2018-03-07 00:13] VITALS: BP 154/97
== END 2018-03-07 00:19 | disposition home or self-care (01) ==
LOC: ED 20:49
DX: M79.1 Myalgia (principal); Z87.891 Personal history of nicotine dependence
CPT/HCPCS: 36415; 80053; 82550; 83605; 83735; 85025; 86140; 96374; 99283; J1885

== ENCOUNTER 2018-06-05 07:40 | Emergency (ER) | payer MEDICARE, MEDICAID ==
[2018-06-05] MEDS ORDERED: NS 0.9% 1000 ML* 1,000 ML IV ONE (07:42)
--- NOTE | 2018-06-05 07:55 | ED ---
Abdominal Pain/Male - HPI Summary HPI Summary: Patient is a 63 y/o M presenting to ED with complaints of LLQ pain onsetting four days ago in the evening. He states that he was lying in bed when pain onset. N/V/D, constipation, testicular pain, and fevers are denied. Patient notes PMHx of hernia around this region six years ago and claims that current pain is similar to his hernia pain. He states that he has a bowel movement every other day. Patient also notes experiencing right sided chest pain yesterday which has since resolved. PMHx of HLD endorsed, HTN and diabetes denied. He also states he has "bad kneecaps". PSHx of appendectomy, cholecystectomy. He is a former smoker, denies drug usage, current alc usage. On triage, pain is rated 7/10, nothing is noted to aggravate/alleviate Sx. Home medications and allergies are reviewed. - History of Current Complaint Chief Complaint: EDAbdPain Stated Complaint: LEFT FLANK PAIN Time Seen by Provider: 06/05/18 07:41 Hx Obtained From: Patient Onset/Duration: Lasting Days - four days chief complaint onset, Still Present, Resolved - chest pain Timing: Constant, Lasting Days - four days chief complaint onset Severity Currently: Severe - 7/10 Pain Intensity: 7 Pain Scale Used: 0-10 Numeric - 7/10 Location: Discrete At: LLQ Radiates: No Aggravating Factor(s): Nothing Alleviating Factor(s): Nothing Associated Signs And Symptoms: Positive: Chest Pain. Negative: Fever, Constipation, Nausea, Vomiting, Diarrhea - Allergies/Home Medications Allergies/Adverse Reactions: Allergies Allergy/AdvReac Type Severity Reaction Status Date / Time No Known Allergies Allergy Verified 07/28/17 15:22 PMH/Surg Hx/FS Hx/Imm Hx Endocrine/Hematology History: Denies: Hx Anticoagulant Therapy, Hx Blood Disorders, Hx Diabetes, Hx Unexplained Bleeding Cardiovascular History: Reports: Hx Hypercholesterolemia - No meds, Other Cardiovascular Problems/Disorders - high cholesterol, medication prescribed early November 2016 Denies: Hx Hypertension, Hx Pacemaker/ICD Respiratory History: Denies: Other Respiratory Problems/Disorders GI History: Reports: Other GI Disorders - Hx umbilical hernia repair, cholecystitis History: Reports: Hx Kidney Stones - KIDNEY STONES 08/2016 Musculoskeletal History: Reports: Hx Arthritis - HIPS ULYSSES, Other Musculoskeletal History - 2 surgeries right knee, probable arthritis knees, occ back spasms Sensory History: Reports: Hx Cataracts, Hx Contacts or Glasses - reading Opthamlomology History: Reports: Hx Cataracts, Hx Contacts or Glasses - reading Psychiatric History: Denies: Hx Panic Disorder - Surgical History Surgery Procedure, Year, and Place: Hernia repair 04/2012,LT ear drum ruptured surgery 1982, bone infection R kneecap surgical treatment, appendectomy 1992, 2006 additional R knee surgery,gallbladder Hx Anesthesia Reactions: No Infectious Disease History: No Infectious Disease History: Denies: History Other Infectious Disease, Traveled Outside the [place] in Last 30 Days - Family History Known Family History: Positive: Cardiac Disease - mother with pacemaker, Other - lung cancer - Social History Alcohol Use: None Alcohol Amount: since 2013 Hx Substance Use: No Substance Use Type: Reports: None Hx Tobacco Use: Yes - not currently Smoking Status (MU): Former Smoker Amount Used/How Often: smoked approx 1/2 pack per week Length of Time of Smoking/Using Tobacco: 1995 Have You Smoked in the Last Year: No Review of Systems Negative: Fever Positive: Abdominal Pain, Other - NEGATIVE - CONSTIPATION . Negative: Vomiting , Diarrhea, Nausea Positive: other - NEGATIVE - TESTICULAR PAIN All Other Systems Reviewed And Are Negative: Yes Physical Exam - Summary Physical Exam Summary: VITAL SIGNS: Reviewed. GENERAL: Patient is a well-developed and nourished male who is lying comfortable in the stretcher. Patient is not in any acute respiratory distress. HEAD AND FACE: No signs of trauma. No ecchymosis, hematomas or skull depressions. No sinus tenderness. EYES: PERRLA, EOMI x 2, No injected conjunctiva, no nystagmus. EARS: Hearing grossly intact. Ear canals and tympanic membranes are within normal limits. MOUTH: Oropharynx within normal limits. NECK: Supple, trachea is midline, no adenopathy, no JVD, no carotid bruit, no c- spine tenderness, neck with full ROM. CHEST: Symmetric, no tenderness at palpation LUNGS: Clear to auscultation bilaterally. No wheezing or crackles. CVS: Regular rate and rhythm, S1 and S2 present, no murmurs or gallops appreciated. ABDOMEN: Soft, LLQ tenderness. No signs of distention. No rebound no guarding, and no masses palpated. Bowel sounds are normal. EXTREMITIES: FROM in all major joints, no edema, no cyanosis or clubbing. NEURO: Alert and oriented x 3. No acute neurological deficits. Speech is normal and follows commands. SKIN: Dry and warm Triage Information Reviewed: Yes Vital Signs On Initial Exam: Initial Vitals Temp Pulse Resp BP Pulse Ox 100 F 65 18 177/101 92 06/05/18 07:42 06/05/18 07:42 06/05/18 07:42 06/05/18 07:42 06/05/18 07:42 Vital Signs Reviewed: Yes Diagnostics - Vital Signs Vital Signs Temp Pulse Resp BP Pulse Ox 06/05/18 07:42 100 F 65 18 177/101 92 - Laboratory Result Diagrams: 06/05/18 08:05 06/05/18 08:05 Lab Statement: Any lab studies that have been ordered have been reviewed, and results considered in the medical decision making process. - CT abd/pel ct CT Interpretation Completed By: Radiologist Summary of CT Findings: IMPRESSION: Left hydronephrosis and hydroureter with a 0.5 cm calculi just above the left. ureterovesicular junction. Diverticulosis without definite evidence of diverticulitis. This report was reviewed by ED physician. Re-Evaluation - Re-Evaluation First Eval Re-Evaluation Time: 11:18 Comment: In the ED course the patient was given ciprofloxacin for the UTI, IV fluids and Toradol for the pain. After these medications were given the patient s symptoms have significantly improved. Since the patient doesnt have any fever and the pain has resolved the patient will be discharged home with follow- up with primary care physician and urology. Patient will be given a prescription for [place] and Zofran for nausea and pain. Patient also was instructed to return to the emergency room if experiencing flank pain, left lower quadrant pain, nausea and vomiting, fevers or chills or any other symptom. The patient understands and agrees. Abdominal Pain Fem Course/Dx - Course Assessment/Plan: Patient is a 63 y/o M presenting to ED with complaints of LLQ pain onsetting four days ago in the evening. He states that he was lying in bed when pain onset. N/V/D, constipation, testicular pain, and fevers are denied. Patient notes PMHx of hernia around this region six years ago and claims that current pain is similar to his hernia pain. He states that he has a bowel movement every other day. Patient also notes experiencing right sided chest pain yesterday which has since resolved. PMHx of HLD endorsed, HTN and diabetes denied. He also states he has "bad kneecaps". PSHx of appendectomy, cholecystectomy. He is a former smoker, denies drug usage, current alc usage. On triage, pain is rated 7/10, nothing is noted to aggravate/alleviate Sx. Home medications and allergies are reviewed. Blood work without any significant abnormality. Urinalysis positive for UTI. Also has +3 blood. Abdominal and pelvic CT IMPRESSION: Left hydronephrosis and hydroureter with a 0.5 cm calculi just above the left. ureterovesicular junction. Diverticulosis without definite evidence of diverticulitis. In the ED course the patient was given ciprofloxacin for the UTI, IV fluids and Toradol for the pain. After these medications were given the patients symptoms have significantly improved. Since the patient doesnt have any fever and the pain has resolved the patient will be discharged home with follow-up with primary care physician and urology. Patient will be given a prescription for [place] and Zofran for nausea and pain. Patient also was instructed to return to the emergency room if experiencing flank pain, left lower quadrant pain, nausea and vomiting, fevers or chills or any other symptom. The patient understands and agrees. - Diagnoses Provider Diagnoses: Ureterolithiasis, UTI (urinary tract infection) Discharge - Sign-Out/Discharge Documenting (check all that apply): Patient Departure - discharge - Discharge Plan Condition: Stable Disposition: HOME Prescriptions: Ciprofloxacin TAB* [Cipro 500 MG TAB*] 500 mg PO BID #10 tab Oxycodone HCl/Acetaminophen [Percocet 5-325 mg Tablet] 1 each PO Q6H PRN #12 tablet MDD 4 PRN Reason: Pain Patient Education Materials: Kidney Stones (ED), Urinary Tract Infection in Men (ED) Referrals: Sohan Contreras MD [Primary Care Provider] - 3 Days Balwinder Miller MD [Medical Doctor] - 3 Days Additional Instructions: RETURN TO ED FOR NEW OR WORSENING SYMPTOMS. FOLLOW UP WITH UROLOGIST AND YOUR PRIMARY CARE PHYSICIAN IN 2-3 DAYS. - Billing Disposition and Condition Condition: STABLE Disposition: Home - Attestation Statements Document Initiated by Scribe: Yes Documenting Scribe: JAYLEN CORDERO Provider For Whom Scribe is Documenting (Include Credential): WESLEY PEÑA MD Scribe Attestation: I, JAYLEN CORDERO , scribed for WESLEY PEÑA MD on 06/06/18 at 2144. Scribe Documentation Reviewed: Yes Provider Attestation: The documentation as recorded by the scribeJAYLEN accurately reflects the service I personally performed and the decisions made by me, WESLEY PEÑA MD Status of Scribe Document: Viewed
[2018-06-05 08:21] LABS: ABS Basophils 0.1 10^3/ul (0-0.2); ABS Eosinophils 0.1 10^3/ul (0-0.6); ABS Lymphocytes 1.1 10^3/ul (1.0-4.8); ABS Monocytes 0.5 10^3/ul (0-0.8); ABS Neutrophils 4.7 10^3/ul (1.5-7.7); ABS Nucleated RBC 0 10^3/ul; Eosinophil % 2.1 %; Hematocrit 40 % (42-52); Hemoglobin 13.4 g/dl (14.0-18.0); Lymphocyte % 16.9 %; Mean Corpuscular HGB Conc 34 g/dl (31-36); Mean Corpuscular Hemoglobin 31 pg (27-31); Mean Corpuscular Volume 91 fL (80-94); Mean Platelet Volume 8.6 fL (7.4-10.4); Nucleated Red Blood Cells % 0.1; Platelet Count 162 10^3/ul (150-450); Red Blood Count 4.36 10^6/ul (4.00-5.40); Red Cell Distribution Width 14 % (10.5-15); White Blood Count 6.5 10^3/ul (3.5-10.8)
[2018-06-05 08:40] LABS: EGFR Non-African American 94.3 (>60)
[2018-06-05 09:20] LABS: Urine Appearance Cloudy; Urine Blood 3+ (Negative); Urine Color Yellow; Urine Ketones Negative (Negative); Urine Protein Negative (Negative); Urine Red Blood Cell 3+(>10/hpf) (Absent); Urine Urobilinogen Negative (Negative); Urine White Blood Cell 1+(6-10/hpf) (Absent)
[2018-06-05] MEDS ORDERED: Iohexol 300* (CONTRAST) 10 ML SDV IV ONE (09:58)
[2018-06-05] MEDS ORDERED: Ciprofloxacin 400MG IVPREMIX(* 400 MG/200 ML BAG IVPB ONE (10:03)
[2018-06-05] MEDS ORDERED: Ketorolac INJ* 30 MG/ML 1 ML VIAL IM ONE (11:10)
[2018-06-05 12:34] VITALS: BP 160/94
== END 2018-06-05 12:30 | disposition home or self-care (01) ==
LOC: ED 07:40
DX: N20.1 Calculus of ureter (principal); N39.0 Urinary tract infection, site not specified; E78.00 Pure hypercholesterolemia, unspecified; Z87.442 Personal history of urinary calculi; Z87.891 Personal history of nicotine dependence; N13.30 Unspecified hydronephrosis; N13.4 Hydroureter
CPT/HCPCS: 36415; 74177; 80053; 81003; 81015; 82550; 83605; 83690; 85025; 86140; 87086; 96361; 96372; 96374; 96375; 99283; J0744; J1885; Q9967

== ENCOUNTER 2019-07-01 14:40 | Observation (INO) | payer MEDICARE, MEDICAID ==
--- NOTE | 2019-07-01 15:02 | ED ---
HPI Chest Pain - HPI Summary HPI Summary: Patient is a 64 y/o M presenting to the ED for a chief complaint of midsternal non-radiating chest pain that began 3-4 days ago. Patient states that his chest pain began while walking and that he cannot walk more than 1-2 blocks before he experiences chest pain. The chest pain is described as a sharp and pressure sensation that lasts for about 5 minutes before resolving. The chest pain is currently resolved. The chest pain worsens with exertion. Patient notes some shortness of breath. He denies diaphoresis, nausea, vomiting, abdominal pain, bilateral LE edema, or bilateral LE myalgia. He denies taking aspirin for his chest pain. PMHx is significant for HLD, but a history of blood clots, DE, or cardiac surgery is denied. Patient quit smoking in 1996. He is unsure of the last time he saw his PCP, but believes it may have been in the last year. Allergies noted. - History of Current Complaint Chief Complaint: EDChestPainROMI Time Seen by Provider: 07/01/19 14:45 Hx Obtained From: Patient Onset/Duration: Started Days Ago - 3-4 days ago, Atraumatic, Resolved Timing: Intermittent, Lasting Minutes - 5 minutes Initial Severity: Mild Current Severity: Mild Pain Intensity: 3 Pain Scale Used: 0-10 Numeric Chest Pain Location: Mid Sternal Chest Pain Radiates: No Character: Pressure/Squeezing, Sharp/Stabbing Aggravating Factor(s): Exertion Alleviating Factor(s): Nothing Associated Signs and Symptoms: Positive: Chest Pain, Shortness of Breath. Negative: Diaphoresis, Nausea, Abdominal Pain, Vomiting, Edema - Bilateral LE, Other: - Negative bilateral LE myalgia - Allergy/Home Medications Allergies/Adverse Reactions: Allergies Allergy/AdvReac Type Severity Reaction Status Date / Time No Known Allergies Allergy Verified 07/01/19 14:58 Home Medications: Home Medications Atorvastatin* [Lipitor*] 20 mg PO DAILY 07/01/19 [History Confirmed 07/01/19] Lisinopril/HCTZ 04/12.(NF) [Zestoretic (NF)] 1 tab PO DAILY 07/01/19 [ History Confirmed 07/01/19] PMH/Surg Hx/FS Hx/Imm Hx Previously Healthy: Yes Endocrine/Hematology History: Denies: Hx Anticoagulant Therapy, Hx Blood Disorders, Hx Diabetes, Hx Unexplained Bleeding Cardiovascular History: Reports: Hx Hypercholesterolemia - No meds, Hx Hypertension, Other Cardiovascular Problems/Disorders - high cholesterol, medication prescribed early November 2016 Denies: Hx Pacemaker/ICD Respiratory History: Denies: Other Respiratory Problems/Disorders GI History: Reports: Other GI Disorders - Hx umbilical hernia repair, cholecystitis History: Reports: Hx Kidney Stones - KIDNEY STONES 08/2016 Denies: Hx Renal Disease Musculoskeletal History: Reports: Hx Arthritis - HIPS ULYSSES, Other Musculoskeletal History - 2 surgeries right knee, probable arthritis knees, occ back spasms Sensory History: Reports: Hx Cataracts, Hx Contacts or Glasses - reading Denies: Hx Legally Blind, Hx Deafness Opthamlomology History: Reports: Hx Cataracts, Hx Contacts or Glasses - reading Denies: Hx Legally Blind EENT History: Denies: Hx Deafness Psychiatric History: Denies: Hx Panic Disorder - Surgical History Surgical History: Yes Surgery Procedure, Year, and Place: Hernia repair 04/2012,LT ear drum ruptured surgery 1982, bone infection R kneecap surgical treatment, appendectomy 1992, 2006 additional R knee surgery,gallbladder Hx Anesthesia Reactions: No Infectious Disease History: No Infectious Disease History: Denies: History Other Infectious Disease, Traveled Outside the [place] in Last 30 Days - Family History Known Family History: Positive: Cardiac Disease - mother with pacemaker, Other - lung cancer - Social History Occupation: Employed Full-time Lives: With Family Alcohol Use: None Alcohol Amount: since 2013 Hx Substance Use: No Substance Use Type: Reports: None Hx Tobacco Use: Yes - not currently Smoking Status (MU): Former Smoker Type: Cigarettes Amount Used/How Often: smoked approx 1/2 pack per week Length of Time of Smoking/Using Tobacco: 1995 Have You Smoked in the Last Year: No Review of Systems Negative: Skin Diaphoresis Positive: Chest Pain Positive: Shortness Of Breath Negative: Abdominal Pain, Vomiting, Nausea Negative: Myalgia - Bilateral LE, Edema - Bilateral LE All Other Systems Reviewed And Are Negative: Yes Physical Exam - Summary Physical Exam Summary: Constitutional: Well-developed, Well-nourished, Alert. (-) Distressed Skin: Warm, Dry HENT: Normocephalic; Atraumatic Eyes: Conjunctiva normal Neck: Musculoskeletal ROM normal neck. (-) JVD, (-) Stridor, (-) Tracheal deviation Cardio: Rhythm regular, rate normal, Heart sounds normal; Intact distal pulses; The pedal pulses are 2+ and symmetric. Radial pulses are 2+ and symmetric. (-) Murmur Pulmonary/Chest wall: Effort normal. (-) Respiratory distress, (-) Wheezes, (-) Rales Abd: Soft, (-) tenderness, (-) Distension, (-) Guarding, (-) Rebound Musculoskeletal: (-) Edema Lymph: (-) Cervical adenopathy Neuro: Alert, Oriented x3 Triage Information Reviewed: Yes Vital Signs On Initial Exam: Initial Vitals Temp Pulse Resp BP Pulse Ox 97.6 F 66 16 165/77 98 07/01/19 14:56 07/01/19 14:56 07/01/19 14:56 07/01/19 14:56 07/01/19 14:56 Vital Signs Reviewed: Yes Procedures - Sedation Patient Received Moderate/Deep Sedation with Procedure: No Diagnostics - Vital Signs Vital Signs Temp Pulse Resp BP Pulse Ox 07/01/19 14:56 97.6 F 66 16 165/77 98 - Laboratory Result Diagrams: 07/01/19 15:06 07/01/19 15:06 Lab Statement: Any lab studies that have been ordered have been reviewed, and results considered in the medical decision making process. - Radiology Chest X-ray Radiology Interpretation Completed By: Radiologist Summary of Radiographic Findings: Chest X-ray IMPRESSION: NO EVIDENCE FOR ACTIVE CARDIOPULMONARY DISEASE. Reviewed by Dr. Lee. - EKG 14:41 Cardiac Rate: NL - 63 BPM EKG Rhythm: Sinus Rhythm ST Segment: Normal Ectopy: None Summary of EKG Findings: EKG at 14:41 shows normal sinus rhythm with 63 BPM, no STEMI, and slight ST depressions in lead V5 and V6. Dr. Lee has reviewed and interpreted this EKG. Chest Pain Course/Dx - Course Course Of Treatment: Patient is a 64 y/o M presenting to the ED for a chief complaint of midsternal non-radiating chest pain that began 3-4 days ago. Patient states that his chest pain began while walking and that he cannot walk more than 1-2 blocks before he experiences chest pain. The chest pain is described as a sharp and pressure sensation that lasts for about 5 minutes before resolving. The chest pain is currently resolved. The chest pain worsens with exertion. Patient notes some shortness of breath. He denies diaphoresis, nausea, vomiting, abdominal pain, bilateral LE edema, or bilateral LE myalgia. He denies taking aspirin for his chest pain. PMHx is significant for HLD, but a history of blood clots, DE, or cardiac surgery is denied. Patient quit smoking in 1996. On exam, unremarkable findings. In the ED course, patient was given aspirin 325 mg PO and heparin 96593 units IV. EKG at 14:41 shows normal sinus rhythm with 63 BPM, no STEMI, and slight ST depressions in lead V5 and V6. Laboratory abnormal findings: Hgb 13.6, Hct 38, MCH 32, BUN/Creatinine ratio 20.7, glucose 106, troponin I 0.07. Chest X-ray IMPRESSION: NO EVIDENCE FOR ACTIVE CARDIOPULMONARY DISEASE. At 15:55, Dr. Mary Wong agrees to admit the patient to [facility] [place] with a diagnosis of non-STEMI. Patient will be admitted to [facility] [place] with a diagnosis of non-STEMI. - Diagnoses Provider Diagnoses: Non-STEMI (non-ST elevated myocardial infarction) - Provider Notifications Discussed Care Of Patient With: Mary Wong - At 15:55, Dr. Mary Wong agrees to admit the patient to [facility] [place] with a diagnosis of non-STEMI. Time Discussed With Above Provider: 15:55 Instructed by Provider To: Admit As Inpatient Discharge ED - Sign-Out/Discharge Documenting (check all that apply): Patient Departure - Admit - Discharge Plan Condition: Stable Disposition: ADMITTED TO [facility] Referrals: Sohan Contreras MD [Primary Care Provider] - - Attestation Statements Document Initiated by Prietoibe: Yes Documenting Scribe: Latosha Scherer Provider For Whom Regan is Documenting (Include Credential): Earnest Lee DO Scribe Attestation: Latosha Phillips scribed for Earnest Lee DO on 07/01/19 at 1616. Status of Scribe Document: Ready
[2019-07-01 15:12] LABS: ABS Basophils 0.1 10^3/ul (0-0.2); ABS Eosinophils 0.1 10^3/ul (0-0.6); ABS Lymphocytes 1.5 10^3/ul (1.0-4.8); ABS Monocytes 0.6 10^3/ul (0-0.8); ABS Neutrophils 3.7 10^3/ul (1.5-7.7); Eosinophil % 1.2 %; Hematocrit 38 % (42-52); Hemoglobin 13.6 g/dL (14.0-18.0); Lymphocyte % 24.9 %; Mean Corpuscular HGB Conc 36 g/dL (31-36); Mean Corpuscular Hemoglobin 32 pg (27-31); Mean Corpuscular Volume 90 fL (80-94); Mean Platelet Volume 8.4 fL (7.4-10.4); Nucleated Red Blood Cells % 0.1; Platelet Count 159 10^3/uL (150-450); Red Blood Count 4.25 10^6 /uL (4.18-5.48); Red Cell Distribution Width 14 % (10-15); White Blood Count 5.9 10^3/uL (3.5-10.8)
[2019-07-01 15:38] LABS: Troponin I 0.07 ng/mL (<0.03)
[2019-07-01 15:45] LABS: ALT 24 U/L (7-52); AST 23 U/L (13-39); Albumin 4.5 g/dL (3.2-5.2); Albumin/Globulin Ratio 1.7 (1-3); Alkaline Phosphatase 79 U/L (34-104); Anion Gap 7 mmol/L (2-11); BUN/Creatinine Ratio 20.7 (8-20); Blood Urea Nitrogen 19 mg/dL (6-24); CO2 Carbon Dioxide 28 mmol/L (22-32); Calcium 9.7 mg/dL (8.6-10.3); Chloride 103 mmol/L (101-111); EGFR African American 99.6 (>60); EGFR Non-African American 82.3 (>60); Globulin 2.7 g/dL (2-4); Glucose 106 mg/dL (70-100); Sodium 138 mmol/L (135-145); Total Protein 7.2 g/dL (6.4-8.9)
[2019-07-01] MEDS ORDERED: Aspirin TAB* 325 MG PO ONE ×2 (15:45)
[2019-07-01] MEDS ORDERED: Heparin DRIP 25,000 UNITS(*) 25,000 UNITS/500 ML BAG IV ONE ×2 (15:59)
[2019-07-01 16:06] LABS: Activated Partial Thrombo Time 27.7 seconds (26.0-38.0)
[2019-07-01] MEDS ORDERED: Heparin VIAL(*) 5000 UNITS/ML VIAL (FIVE THOUSAND) IV ONE (16:07)
[2019-07-01] MEDS ORDERED: Aspirin 81 mg CHEW TAB* 81 MG TAB.CHEW ONE ×2 (16:07)
[2019-07-01] MEDS ORDERED: Aspirin 81 mg CHEW TAB* 81 MG TAB.CHEW PO ONE (16:07)
[2019-07-01] MEDS ORDERED: Heparin VIAL(*) 5000 UNITS/ML VIAL (FIVE THOUSAND) ONE ×2 (16:09)
[2019-07-01] MEDS ORDERED: Acetaminophen TAB* 325 MG PO PRN (16:20)
[2019-07-01] MEDS ORDERED: Al Hydrox/Mg Hydrox/Simet LIQ* 30 ML UDC PO PRN (16:20)
[2019-07-01] MEDS ORDERED: Acetaminophen TAB* 325 MG PO ONE (16:20)
[2019-07-01] MEDS ORDERED: Heparin DRIP 25,000 UNITS(*) 25,000 UNITS/500 ML BAG IV SCH ×2 (16:45→17:30)
[2019-07-01] MEDS ORDERED: Heparin VIAL(*) 5000 UNITS/ML VIAL (FIVE THOUSAND) IV SCH ×2 (17:00→18:00)
[2019-07-01 18:49] LABS: Blood Urea Nitrogen 18 mg/dL (6-24)
--- NOTE | 2019-07-01 20:34 | HP ---
CC: Dr. Contreras; Dr. Dodge * HISTORY AND PHYSICAL: DATE OF ADMISSION: 07/01/19 PRIMARY CARE PROVIDER: Dr. Contreras. CHIEF COMPLAINT: Chest pain. HISTORY OF PRESENT ILLNESS: Sage Patel is a 64-year-old male with history of hypertension and hyperlipidemia, also stated over the past 4 days whenever he tries to walk after approximately 5 minutes or walking 2 blocks, he develops chest pain. The chest pain is localized in the right side of his chest, nonradiating not associated with shortness of breath or diaphoresis. It feels like a pressure at 4/10 in intensity and resolves within 5 minutes after he stops walking. He had been having those symptoms for the past 4 days. Today, when he was walking to [employer] to get the meal for his , the pain recurred and his urged him to come into the ED for evaluation. Here his EKG is not significantly different from prior, but his troponin was 0.07. He is going to be placed on overnight observation with a diagnosis of chest pain, possibility of SD. PAST MEDICAL HISTORY: 1. Hypertension. 2. Hyperlipidemia. 3. History of kidney stones in 2016. 4. Cholecystectomy in the past. 5. Appendectomy in the past. 6. History of umbilical hernia repair. 7. Right knee cap surgery in the past. MEDICATIONS: Include: 1. Atorvastatin 20 mg daily. 2. Lisinopril/hydrochlorothiazide 10/12.5 one tablet daily. ALLERGIES: No known drug allergies. FAMILY HISTORY: Positive for father who of lung cancer at the age of 67, mother who at the age of 84. She suddenly in her sleep, but she had history of pacemaker placement. SOCIAL HISTORY: The patient quit smoking in 1995, he has history of 15-pack year smoking. He quit drinking alcohol in 2006. Currently, he does not drink alcohol at all. He does not do any drugs. REVIEW OF SYSTEMS: Please see history of present illness. All the remaining 12 systems were reviewed with the patient and were otherwise negative. PHYSICAL EXAMINATION GENERAL: The patient is a very pleasant 64-year-old male, who is in no acute distress. The patient is alert and oriented x3. VITAL SIGNS: Blood pressure of 165/77, heart rate of 66 and regular, respiratory rate 16, oxygen saturation 98% on room air, temperature of 97.6. HEENT: Head: Atraumatic, normocephalic. Eyes: Pupils equal and reactive to light and accommodation. Oropharynx clear. Mucosa moist. NECK: Supple. No JVD. No bruits bilaterally. RESPIRATORY: Clear to auscultation bilaterally. CARDIOVASCULAR: Regular rate and rhythm. No murmur. ABDOMEN: Soft, nontender. Bowel sounds are present in all 4 quadrants. EXTREMITIES: There is no edema. Pulses are +2 bilaterally. No clubbing or cyanosis. NEUROLOGIC: On neuro evaluation, speech clear. Cranial nerves II through XII are grossly intact. Motor strength is 5/5 bilaterally. DIAGNOSTIC STUDIES/LAB DATA: Laboratory data showed a white blood cell count of 5.9, hemoglobin of 13.6, hematocrit of 38, and platelets of 159. D-dimer was below 200. Sodium was 138, potassium 4.0, chloride 103, carbon dioxide 28, BUN 19, creatinine 0.92. Liver function tests were unremarkable. Troponin of 0.07. Glucose level of 106. The patient's EKG showed normal sinus rhythm with a heart rate of 60 beats per minute with minimal ST abnormality with slight elevation in his V2, V3 that are comparable with prior EKG from January 2019. Portable chest x-ray showed no evidence of acute cardiopulmonary disease. ASSESSMENT AND PLAN: 1. The patient's symptoms could be related to exertional angina. Currently with his troponin at an intermittent range, he is going to be placed on aspirin. His statin is going to be increased to 40 mg daily. He was already started on heparin drip in the ED, which is going to be continued. I curbsided the patient's case with Dr. Dodge, the vacuum cleaner assembler on-call. At this point , we are going to continue trending troponins and if his troponin is not significantly increased from current one, the patient will likely be able to have a stress test after New Year's. If his troponin continues to rise, the patient will require an official Cardiology consult. Please note that the patient is admitted on 07/01/19 and on the 07/02/19 we have no availability of getting an echocardiogram or a cardiac stress test. 2. In regards to the patient's hyperlipidemia, fasting lipid profile is going to be obtained in the morning. His Lipitor is going to be increased to 40 mg daily. 3. In regards to the patient's hypertension, his Zestoretic is going to be held. Due to his possibility of heart attack, the patient is going to be started on beta- juan with a small dose of 12.5 mg every 12 hours due to his relatively low heart rate. 4. For DVT prophylaxis, the patient is going to be placed on heparin drip as mentioned above. 5. The patient's code status is full. His surrogate is his . TIME SPENT: Approximately 65 minutes were spent on the admission of this patient, more than half that time was spent [id number] with the patient during the interview and physical exam. [id number] #: [id number] MTDD
[2019-07-01] MEDS: Metoprolol Tartrate TAB* 25 MG PO SCH (20:55)
[2019-07-01] MEDS ORDERED: Metoprolol Tartrate TAB* 25 MG PO ONE (21:00)
[2019-07-01 22:33] LABS: EGFR African American 99.6 (>60); EGFR Non-African American 82.3 (>60)
[2019-07-01 22:42] LABS: Troponin I 0.09 ng/mL (<0.03)
[2019-07-02 05:06] LABS: ABS Eosinophils 0.2 10^3/ul (0-0.6); ABS Lymphocytes 2.6 10^3/ul (1.0-4.8); ABS Monocytes 0.6 10^3/ul (0-0.8); ABS Neutrophils 3.6 10^3/ul (1.5-7.7); Eosinophil % 2.6 %; Hematocrit 38 % (42-52); Hemoglobin 13.3 g/dL (14.0-18.0); Lymphocyte % 37.9 %; Mean Corpuscular HGB Conc 35 g/dL (31-36); Mean Corpuscular Hemoglobin 31 pg (27-31); Mean Corpuscular Volume 90 fL (80-94); Mean Platelet Volume 8.3 fL (7.4-10.4); Nucleated Red Blood Cells % 0.1; Platelet Count 153 10^3/uL (150-450); Red Blood Count 4.24 10^6 /uL (4.18-5.48); Red Cell Distribution Width 15 % (10-15)
[2019-07-02 05:28] LABS: BUN/Creatinine Ratio 17.6 (8-20); Calcium 9.6 mg/dL (8.6-10.3); EGFR African American 100.9 (>60); EGFR Non-African American 83.4 (>60); HDL Cholesterol 34.8 mg/dL; Potassium 4.1 mmol/L (3.5-5.0)
[2019-07-02] MEDS: Aspirin EC TAB* 81 MG TAB.EC PO SCH (08:50)
[2019-07-02] MEDS: Atorvastatin* 40 MG TAB PO SCH (08:50)
[2019-07-02] MEDS: Metoprolol Tartrate TAB* 25 MG PO SCH ×2 (08:50→21:27)
[2019-07-02] MEDS ORDERED: Atorvastatin* 40 MG TAB PO ONE (09:00)
[2019-07-02] MEDS ORDERED: Atorvastatin* 20 MG TAB PO SCH (09:00)
[2019-07-02] MEDS ORDERED: Aspirin EC TAB* 81 MG TAB.EC PO ONE (09:00)
[2019-07-02] MEDS ORDERED: Regadenoson* 0.4 MG/5 ML SYRINGE ONE (10:30)
[2019-07-02] MEDS ORDERED: Enoxaparin(*) 80 MG/0.8 ML SYR SUBCUT ONE (14:00)
[2019-07-02] MEDS: Enoxaparin(*) 80 MG/0.8 ML SYR SUBCUT SCH (14:41)
--- NOTE | 2019-07-02 16:03 | PN ---
Subjective Date of Service: 07/02/19 Interval History: No chest pain overnight Has not walked around the hospital Denies SOB Not a very good historian Objective Active Medications: Acetaminophen (Tylenol Tab*) 650 mg PO Q4H PRN PRN Reason: PAIN-MILD/TEMP >/= 100.4 Al Hydrox/Mg Hydrox/Simethicone (Maalox Plus*) 30 ml PO Q6H PRN PRN Reason: INDIGESTION Aspirin (Aspirin Ec Tab*) 81 mg PO DAILY [facility] Last Admin: 07/02/19 08:50 Dose: 81 mg Atorvastatin Calcium (Lipitor*) 40 mg PO DAILY [facility] Last Admin: 07/02/19 08:50 Dose: 40 mg Enoxaparin Sodium (Lovenox(*)) 80 mg SUBCUT Q12H [facility] Last Admin: 07/02/19 14:41 Dose: 80 mg Metoprolol Tartrate (Lopressor Tab*) 12.5 mg PO Q12HR [facility] Last Admin: 07/02/19 08:50 Dose: 12.5 mg Vital Signs - 8 hr 07/02/19 07/02/19 07/02/19 08:05 11:55 15:15 Temperature 97.5 F 98.5 F 98 F Pulse Rate 54 52 56 Respiratory 20 20 18 Rate Blood Pressure 145/70 133/72 148/73 (mmHg) O2 Sat by Pulse 99 98 100 Oximetry Oxygen Devices in Use Now: None Appearance: NAD Eyes: No Scleral Icterus, PERRLA Ears/Nose/Mouth/Throat: NL Teeth, Lips, Gums, Clear Oropharnyx Neck: NL Appearance and Movements; NL JVP, Trachea Midline Respiratory: Symmetrical Chest Expansion and Respiratory Effort, Clear to Auscultation Cardiovascular: NL Sounds; No Murmurs; No JVD, RRR Abdominal: NL Sounds; No Tenderness; No Distention Extremities: No Edema Skin: No Rash or Ulcers Neurological: Alert and Oriented x 3 Result Diagrams: 07/02/19 05:00 07/02/19 05:00 Assess/Plan/Problems-Billing Assessment: 64 M h/o HTN, HLD, remote smoking pw typical chest pain - Patient Problems (1) Chest pain Comment: NSTEMI typical pain with ambulation that is new exercise tolerance unclear. He is not a good historian but does not exercise Plan on nuclear stress tomorrow ASA (new), statin, metoprolol (new) heparin gtt changed to full dose lovenox (1 dose - restart tomorrow after stress if needed) (2) Hypertension Comment: metoprolol may need lisinopril or HCTZ added back on discharge (3) Hyperlipidemia Comment: statin (4) DVT prophylaxis Comment: lovenox
[2019-07-03] MEDS: Enoxaparin(*) 80 MG/0.8 ML SYR SUBCUT SCH (01:30)
[2019-07-03 05:17] LABS: EGFR African American 99.6 (>60); EGFR Non-African American 82.3 (>60)
[2019-07-03] MEDS ORDERED: Aminophylline IV* 25 MG/ML 10 ML VIAL ONE (10:30)
[2019-07-03] MEDS ORDERED: Regadenoson* 0.4 MG/5 ML SYRINGE ONE (10:30)
[2019-07-03 12:42] VITALS: BP 152/68
[2019-07-03] MEDS: Metoprolol Tartrate TAB* 25 MG PO SCH (13:25)
[2019-07-03] MEDS: Aspirin EC TAB* 81 MG TAB.EC PO SCH (13:26)
[2019-07-03] MEDS: Atorvastatin* 40 MG TAB PO SCH (13:26)
--- NOTE | 2019-07-03 22:42 | DS ---
CC: Dr. Contreras * DISCHARGE SUMMARY: DATE OF ADMISSION: 07/01/19 DATE OF DISCHARGE: 07/03/19 PRIMARY CARE PHYSICIAN: Dr. Contreras. DISPOSITION AT DISCHARGE: Home. CONDITION ON DISCHARGE: Good. PRIMARY DIAGNOSIS: Nonischemic chest pain. SECONDARY DIAGNOSES: Include: 1. Elevated troponin. 2. Hypertension. 3. Hyperlipidemia. 4. Prediabetes. MEDICATIONS AT DISCHARGE: Include: 1. Metoprolol tartrate 12.5 mg daily. 2. Atorvastatin 40 mg daily. 3. Aspirin 81 mg daily. Please note, the addition of aspirin as well as the transition of combination antihypertensive for metoprolol tartrate 12.5 mg and increase of atorvastatin from 20 to 40 mg. PERTINENT LABORATORY DATA: During the course of the hospital stay, troponin I peaked at 0.10. Triglycerides 337, total cholesterol 193, LDL 91, HDL 34.8. Hemoglobin A1c was 5.7. IMAGING FROM THE HOSPITAL STAY: Chemical stress with nuclear imaging. Impression: Relatively fixed photopenia of the inferior wall, which may be an artifact of soft tissue attenuation. No definite reversibility to suggest ischemia. Assessment is low risk. HISTORY OF PRESENT ILLNESS AND HOSPITAL COURSE: A 64-year-old man with past medical history as outlined in the history of present illness on the day of admission including hypertension, hyperlipidemia, remote history of smoking presented to the hospital with typical chest pain, developed with ambulation. He was found to have elevated troponin peaked at 0.01. He was placed on a heparin drip, trended the troponins until normalized, and underwent a stress test with imaging as indicated above. No other etiology was identified with the patient's chest discomfort. He did roll in for an NSTEMI with a negative stress. I was compelled to start the patient on metoprolol low dose as well as aspirin in deference to his combination hydrochlorothiazide/lisinopril medication. Of note, with twice daily dosing of metoprolol, the patient's heart rate was in the 50s. Therefore, I discharged him on the lowest dose of 12.5 mg daily. No complications during the course of hospital stay. At followup, please; 1. Can consider followup transthoracic echocardiogram if the patient has further episodes of chest pain or referal to Cardiology or initiation of a nitrate, hopefully with the institution of these medications, the patient will not have further chest discomfort. 2. Please follow up blood pressure and heart rate on changes in medication. 3. We will need follow up for cholesterol in the future. 4. Counseled the patient on diet and exercise. We will continue to do so as I am sure you are. 5. No other specific labs or vitals that need followup. Reasons to return to the hospital including, but not limited to, recurrent or worsening symptoms including chest pain, shortness of breath, nausea, vomiting, lightheadedness, loss of consciousness, near loss of consciousness were discussed with the patient and his sister. They both acknowledged understanding. TIME SPENT: Greater than 45 minutes was spent on the discharge of this patient ; greater than half of that spent [id number] with patient. [id number]/CPS #: [id number] RADHA
== END 2019-07-03 15:05 | disposition home or self-care (01) ==
LOC: ED 14:40 → MEDTELE 16:20
PROVIDERS: ADMIT Internal Medicine; ATTEND Internal Medicine
DX: R07.89 Other chest pain (principal); R79.89 Other specified abnormal findings of blood chemistry; I10 Essential (primary) hypertension; R06.02 Shortness of breath; E78.5 Hyperlipidemia, unspecified; E78.00 Pure hypercholesterolemia, unspecified; R73.03 Prediabetes; Z79.82 Long term (current) use of aspirin; Z79.899 Other long term (current) drug therapy; Z87.442 Personal history of urinary calculi
CPT/HCPCS: 36415; 71045; 78452; 80048; 80053; 80061; 82565; 83036; 84484; 84520; 85025; 85379; 85610; 85730; 93005; 93017; 96372; 99284; A9270-GY; A9502; G0378; J0280; J1644; J1650; J2785

== ENCOUNTER 2021-03-28 07:30 | Observation (INO) ==
[~2021-03-28 07:30] MED LIST changes: +Buffered Lidocaine 1% SYRIN 1 ml INTRADERM ONE; +Famotidine IV 10 MG/ML 2 ml VIAL (20 mg) IV ONE; -Ketorolac INJ* 60 MG/2 ML VIAL IM ONE; +Lactated Ringers 1000 ml BAG 1,000 ML IV SCH
[2021-03-28] MEDS ORDERED: cefTRIAXone 1 gm/50 mL NS BAG 1 GM/50 ML BAG ONE ×2 (07:57→08:52)
[2021-03-28] MEDS ORDERED: Famotidine IV 10 MG/ML 2 ml VIAL (20 mg) ONE (07:58)
[2021-03-28] MEDS ORDERED: Buffered Lidocaine 1% SYRIN 1 ml INTRADERM ONE (07:58)
[2021-03-28] MEDS ORDERED: Propofol 10 MG/ML 20 ML BTL ONE (09:14)
[2021-03-28] MEDS ORDERED: fentaNYL 250 mcg/5 ml 50 MCG/ML 5 ml VIAL (250 MCG) ONE (09:14)
[2021-03-28] MEDS ORDERED: Lidocaine 2% PF 5 ML VIAL ONE (09:14)
[2021-03-28] MEDS ORDERED: Midazolam 2 mg/2 ml VIAL 1 mg/ml 2 ml VIAL (2 mg) ONE (09:15)
[2021-03-28] MEDS ORDERED: Glycopyrrolate IV 0.2 MG/ML 1 ML VIAL ONE (09:41)
[2021-03-28] MEDS ORDERED: EPHEDrine (Pressors) 50 MG/ML VIAL ONE (09:43)
[2021-03-28] MEDS ORDERED: Phenylephrine 40 mcg/mL 10mL (400mcg) SYRINGE ONE (09:55)
[2021-03-28] MEDS ORDERED: Ondansetron 4 mg VIAL 2 MG/ML 2 ml VIAL ONE (10:03)
[2021-03-28] MEDS ORDERED: HYDROcodone/ACETAMIN 5/325 mg TAB PO PRN (10:36)
[2021-03-28] MEDS ORDERED: Naloxone 0.4 mg VIAL 0.4 mg/ml 1 ml VIAL IV PRN (10:36)
[2021-03-28] MEDS ORDERED: DiMENhydriNATE IV 50 mg/ml 1 ml VIAL IV PUSH PRN (10:36)
[2021-03-28] MEDS ORDERED: fentaNYL 100 mcg/2 ml 50 MCG/ML VIAL IV PRN (10:36)
[2021-03-28] MEDS ORDERED: Ondansetron 4 mg VIAL 2 MG/ML 2 ml VIAL IV PRN ×2 (10:36→13:11)
[2021-03-28] MEDS ORDERED: Morphine 4 MG/ML VIAL (1 ml) ONE (12:10)
[2021-03-28] MEDS ORDERED: Morphine 2 MG/ML SYRINGE IV ONE (12:10)
[2021-03-28] MEDS ORDERED: Al Hydrox/Mg Hydrox/Simet LIQ 30 ML UDC PO PRN (13:11)
[2021-03-28 14:11] LABS: ABS Basophils 0.1 10^3/ul (0-0.2); ABS Eosinophils 0.1 10^3/ul (0-0.6); ABS Lymphocytes 1.7 10^3/ul (1.0-4.8); ABS Monocytes 0.4 10^3/ul (0-0.8); ABS Neutrophils 3.7 10^3/ul (1.5-7.7); Eosinophil % 1.1 %; Hematocrit 35 % (42-52); Hemoglobin 11.8 g/dL (14.0-18.0); Mean Corpuscular HGB Conc 34 g/dL (31-36); Mean Corpuscular Hemoglobin 31 pg (27-31); Mean Corpuscular Volume 93 fL (80-94); Mean Platelet Volume 8.3 fL (7.4-10.4); Platelet Count 138 10^3/uL (150-450); Red Blood Count 3.81 10^6 /uL (4.18-5.48); Red Cell Distribution Width 14 % (10-15); White Blood Count 5.9 10^3/uL (3.5-10.8)
[2021-03-28 14:28] LABS: Calcium 8.7 mg/dL (8.6-10.3); EGFR African American 101.5 (>60); EGFR Non-African American 83.9 (>60)
[2021-03-28 14:31] LABS: Troponin I 0.01 ng/mL (<0.03)
[2021-03-28 17:18] LABS: Urine Appearance Cloudy; Urine Bacteria 1+ (Absent); Urine Bilirubin Negative (Negative); Urine Blood 3+ (Negative); Urine Color Red; Urine Glucose Negative (Negative); Urine Ketones Negative (Negative); Urine Nitrite Negative (Negative); Urine Protein 3+(>=500 mg/dL) (Negative); Urine Red Blood Cell 3+(>10/hpf) (Absent); Urine Specific Gravity 1.017 (1.002-1.030); Urine Squamous Epithelial Cell Present (Absent); Urine Urobilinogen Negative (Negative); Urine White Blood Cell Trace(0-5/hpf) (Absent); Urine Yeast Present (Absent)
[2021-03-29 07:24] LABS: ABS Basophils 0.1 10^3/ul (0-0.2); ABS Eosinophils 0.1 10^3/ul (0-0.6); ABS Lymphocytes 1.3 10^3/ul (1.0-4.8); ABS Monocytes 0.5 10^3/ul (0-0.8); ABS Neutrophils 3.8 10^3/ul (1.5-7.7); Eosinophil % 2.4 %; Hematocrit 33 % (42-52); Hemoglobin 11.4 g/dL (14.0-18.0); Lymphocyte % 22.8 %; Mean Corpuscular HGB Conc 35 g/dL (31-36); Mean Corpuscular Hemoglobin 32 pg (27-31); Mean Corpuscular Volume 92 fL (80-94); Mean Platelet Volume 8.3 fL (7.4-10.4); Platelet Count 125 10^3/uL (150-450); Red Blood Count 3.58 10^6 /uL (4.18-5.48); Red Cell Distribution Width 14 % (10-15); White Blood Count 5.8 10^3/uL (3.5-10.8)
[2021-03-29 07:40] LABS: Calcium 8.8 mg/dL (8.6-10.3); EGFR Non-African American 88.4 (>60)
[2021-03-29] MEDS ORDERED: Aspirin EC 81 mg TAB.EC (enteric coated) PO SCH (09:00)
[2021-03-29] MEDS ORDERED: Regadenoson 0.4 MG/5 ML SYRINGE ONE (12:03)
[2021-03-29 17:22] VITALS: BP 133/61
== END 2021-03-29 18:45 | disposition home or self-care (01) ==
LOC: OR 07:30 → MEDTELE 07:30
PROVIDERS: ADMIT Urology; ATTEND Urology

== ENCOUNTER 2022-09-27 08:30 | Observation (INO) ==
[2022-09-27 09:48] LABS: ABS Eosinophils 0.1 10^3/ul (0-0.6); ABS Lymphocytes 1.1 10^3/ul (1.0-4.8); ABS Monocytes 0.7 10^3/ul (0-0.8); ABS Neutrophils 6.9 10^3/ul (1.5-7.7); Hematocrit 30 % (42-52); Hemoglobin 9.8 g/dL (14.0-18.0); Lymphocyte % 12.3 %; Mean Corpuscular Hemoglobin 30 pg (27-31); Mean Corpuscular Hgb Conc 32 g/dL (31-36); Mean Corpuscular Volume 92 fL (80-94); Mean Platelet Volume 8.6 fL (7.4-10.4); Platelet Count 256 10^3/uL (150-450); Red Blood Count 3.31 10^6 /uL (4.18-5.48); Red Cell Distribution Width 16 % (10-15); White Blood Count 8.8 10^3/uL (3.5-10.8)
[2022-09-27 09:55] LABS: INR 1.27 (0.88-1.18)
[2022-09-27 10:40] LABS: Albumin 3.7 g/dL (3.2-5.2); Calcium 9.1 mg/dL (8.6-10.3); Potassium 4.4 mmol/L (3.5-5.0); Total Bilirubin 1.9 mg/dL (0.2-1.0)
[2022-09-27 10:46] LABS: Albumin/Globulin Ratio 1.5 (1-3); Creatinine, Serum 0.72 mg/dL (0.67-1.17); Globulin 2.5 g/dL (2-4); Total Protein 6.2 g/dL (6.4-8.9); eGFR CKD-EPI 98.9 (>60)
[2022-09-27 11:18] LABS: High Sensitivity Troponin 1 Hr 46 pg/mL (<20)
[2022-09-27] MEDS ORDERED: Iohexol 350 (CONTRAST) 500 ML MDV IV ONE (11:38)
[2022-09-27] MEDS ORDERED: Furosemide 40 mg/4 ml IV VIAL IV SLOW PU ONE (13:51)
[2022-09-27 13:55] LABS: C Reactive Protein 83.56 mg/L (<8.01)
[2022-09-27 15:53] LABS: Erythrocyte Sed Rate 68 mm/Hr (0-19)
[2022-09-27] MEDS ORDERED: Senna TAB 8.6 mg TAB PO PRN (21:20)
[2022-09-27] MEDS ORDERED: Polyethylene Glycol 3350 17 GM PACKET PO PRN (21:20)
[2022-09-27] MEDS ORDERED: guaiFENesin 100 mg/5 ml LIQ unit dose cup PO PRN (21:36)
[2022-09-27] MEDS ORDERED: Benzocaine (DENTAL) 10% TOP.GEL TOPICAL PRN (21:36)
[2022-09-27 21:55] LABS: Magnesium 2.1 mg/dL (1.9-2.7)
[2022-09-28 06:01] LABS: ABS Basophils 0.1 10^3/ul (0-0.2); ABS Eosinophils 0.2 10^3/ul (0-0.6); ABS Lymphocytes 1.2 10^3/ul (1.0-4.8); ABS Monocytes 0.7 10^3/ul (0-0.8); ABS Neutrophils 5.9 10^3/ul (1.5-7.7); Eosinophil % 2.5 %; Hematocrit 28 % (42-52); Hemoglobin 9.1 g/dL (14.0-18.0); Lymphocyte % 14.5 %; Mean Corpuscular Hemoglobin 30 pg (27-31); Mean Corpuscular Hgb Conc 33 g/dL (31-36); Mean Corpuscular Volume 92 fL (80-94); Mean Platelet Volume 8.8 fL (7.4-10.4); Platelet Count 250 10^3/uL (150-450); Red Blood Count 3.03 10^6 /uL (4.18-5.48); Red Cell Distribution Width 15 % (10-15); White Blood Count 8.1 10^3/uL (3.5-10.8)
[2022-09-28 06:21] LABS: Albumin 3.4 g/dL (3.2-5.2); Albumin/Globulin Ratio 1.5 (1-3); Calcium 8.6 mg/dL (8.6-10.3); Creatinine, Serum 0.75 mg/dL (0.67-1.17); Globulin 2.2 g/dL (2-4); Potassium 3.9 mmol/L (3.5-5.0); Total Bilirubin 1.7 mg/dL (0.2-1.0); Total Protein 5.6 g/dL (6.4-8.9); eGFR CKD-EPI 97.7 (>60)
[2022-09-28 08:11] LABS: TSH Ultra Thyroid Stim Horm 1.01 mcIU/mL (0.34-5.60)
[2022-09-28 08:15] LABS: Free T4 1.11 ng/dL (0.61-1.12)
[2022-09-28 10:14] LABS: High Sensitivity Troponin 1 Hr 42 pg/mL (<20)
[2022-09-28] MEDS: Furosemide 40 mg/4 ml IV VIAL IV SLOW PU SCH (10:58)
[2022-09-28] MEDS: Potassium Chlor 20 meq TAB.ER PO SCH (11:01)
[2022-09-28 14:46] LABS: Direct Bilirubin 0.2 mg/dL (0.03-0.18); Indirect Bilirubin 1.5 mg/dL (0.3-1.0)
[2022-09-29] MEDS: Furosemide 40 mg/4 ml IV VIAL IV SLOW PU SCH (09:13)
[2022-09-29] MEDS: Potassium Chlor 20 meq TAB.ER PO SCH (09:13)
[2022-09-29 11:32] LABS: Body Fluid WBC 3822 /mcL
[2022-09-29 11:34] LABS: Body Fluid Appearance Bloody; Body Fluid Color Red; Body Fluid Source Pleural Fluid
[2022-09-29 12:58] LABS: Body Fluid Mono 24 %; Body Fluid Other Cells 20; Body Fluid Total Cells Counted 200
[2022-09-29 16:05] VITALS: BP 108/57
[2022-10-02 09:38] LABS: Fluid Type, Protein, Total PLEURAL
[2022-10-02 10:21] LABS: Fluid Type: PLEURAL; Lactate Dehydrogenase, BF 345 U/L
== END 2022-09-29 15:10 | disposition home or self-care (01) ==
LOC: ED 08:30 → EDHOLD 08:30 → SUATTDRO 19:43 → MEDTELE 23:08
PROVIDERS: ADMIT Internal Medicine; ATTEND Internal Medicine